=== PATIENT | female | born 1950 | race Caucasian/White ===

== ENCOUNTER 2025-08-26 07:45 | Outpatient (OUT) | payer MEDICARE, OTHER, SELFPAY ==
--- OUTSIDE RECORDS SUMMARY | 2021-03-03 07:00 | XMS_ITS | Continuity of Care Document ---
Author Organization [email or web address] [facility] Address [address] [place] [address] Phone Care Team Providers Care Pediatric Psychiatrist Name Role Phone Mike Huertas DO Unavailable Unavailabl e Allergies, Adverse Reactions, Alerts Substance Reaction Status Criticality No Known Allergies Active No Inform ation Medications Medication Instructions Dosage Effective Dates (start - stop) Status Comments Calcium 500 500 mg calcium (1,250 mg) tablet - Active ibuprofen 800 mg tablet take 1 tablet by oral route 3 times every day with food 800 MG - Active Multiple Vitamin, Womens tablet - Active Vitamin C 500 mg capsule,extended release - Active Procedures Procedure Date POSTOP FOLLOW-UP VISIT Advance Directives Directive Yes / No Effective Date File Name No Information Encounters Encounter Description Practice Location Reason(s) For Visit Diagnoses Date Provider Providers Copied on Encounter [email or web address] [facility], [address] [place] [address] [address], [place], [place], [id number] , [place] [phone] [facility] General Surgery Skin under chin (chief complaint) Elective procedure for unacceptable cosmetic appearance Feb- Aleksandar Wolfe. [address], [place], [place], [id number], [place]. tel:[phone] Referring Provider: Mike Huertas DO, [address], [place], [address]. tel:[phone] Family History Family Member Type Diagnosis Age At Onset No Information Payers Payer name Insurance type Covered republican ID Authoriza tion(s) Medicare MB [id number] [employer] [id number] Social History Type Description Quantity Date Captured Comments Alcohol Use Details Unknown Caffeine Use Details Unknown Tobacco Use Status Current non-smoker Smoking Status Never smoker Non-Smoking Tobacco Use Details : No Details Available : No Details Available [id number] SexFemale Vital Signs Date / Time: Height Weight BMI Pulse Rate Blood Pressure Temperature Respiratory Rate Body Surface Area Head Circumference Head Circ. Percentile Wt./Claudio. Percentile BMI percentile Pulse Ox Inhaled Ox 11:00 AM 63.00 in 58.967 kg (130.00 lbs) 23.0 3 kg/m eter (2) 148/78 mm[Hg] 98.30 F Chief Complaint And Reason For Visit From encounter dated '03/03/2021 11:00'. Skin under chin (chief complaint). Description: Cinda is a very pleasant 70 year old female who is seen for a cosmetic consultation regarding excess and sagging skin under the neck. Unfortunately she will likely need a true neck and facelift. These are procedures that I unfortunately do not do. Ihave referred her to Dr. Rober Harden and Dr. Betzaida Mckeon at [facility]. Reason For Referral Reason For Referral No Information History Of Present Illness Encounter Date Complaint History Of Prese nt Illness Skin under chin Cinda is a jairo y pleasant 70 year old female who is seen for a cosmetic consultation regarding excess and sagging skin under the neck. Unfortunately she will likely need a true neck and facelift. These are procedures that I unfortunately do not do. I have referred her to Dr. Rober Harden and Dr. Betzaida Mckeon at [facility]. Functional Status Date Functional Assessmen t No Information Instructions Date Instruction Additional Infor mation No Information Assessments Type Assessment Date assessment Elective procedure for unaccepta ble cosmetic appearance Patient Care Teams Name Effective Dates (start - stop) Status Members No Information
--- OUTSIDE RECORDS SUMMARY | 2025-08-26 07:50 | XMS_ITS | Clinical Summary ---
Author Organization [facility] Address [address] [place] [address] Care Team Providers Care Trackmobile Operator Name Role Phone Walter Sellers MD Primary Care Provider [phone] Allergies Active AllergyReactionsCriticalityNoted DateCommentsPenicillinsHives,OtherLow 12/01/2014 Medications MedicationSigDispense QuantityRefillsLast FilledStart DateEnd DateStatus ibuprofen 800 MG tablet Take 800 mg by mouth 2 (two) times a day as neededActive gabapentin (Neurontin) 300 MG capsule 06/09/2024ctive pantoprazole (ProtoNix) 40 MG EC tablet Take 40 mg by mouth in the morning. Take before meals. Do not crush, chew, or split.Active atorvastatin (Lipitor) 20 MG tablet Take 20 mg by mouth DailyActive alendronate (Fosamax) 70 MG tablet Take 70 mg by mouth every 7 (seven) days Take in the morning with a full glass of water, on an empty stomach, and do not take anything else by mouth or lie down for the next 30 min.Active ammonium lactate (Amlactin) 12 % cream Indications:Corns and callositiesApply topically Daily 140 g [id number](Therapy completed) Active Problems No known active problems Encounters DateTypeDepartmentCare WgrjQbnztpanogm50/02/2025Telephone [facility] [address] [place] [address] Viktor Carpenter PA [facility]/05/[facility]25 1:30 PM EDTOffice Visit [facility] [place] [facility] [address] [place] [address] Viktor Carpenter PA Acute right hip pain (Primary Dx); Sacroiliac joint pain08/05/2025amboo flowsheet [facility] [address] [place] [address] Viktor Carpenter PA 08/05/2025Travelfrom Last 3 Months Immunizations ImmunizationAdministration DatesNext DueInfluenza, High-dose Seasonal, Quadrivalent, Preservative Free08/02/2023Influenza, Seasonal, Quadrivalent, Ivkvgnyhvy29/01/2021Influenza, injectable, quadrivalent, preservative free 08/12/2018Influenza, trivalent, pamkengfin94/19/2018RSV, recombinant, protein subunit RSVpreF, adjuvant reconstitu, 120mcg/0.5mL, PF (Arexvy)08/02/2023Tdap 06/20/2015 Family History RelationNameStatusCommentsFatherDeceasedMotherDeceased Social History Tobacco UseTypesPacks/DayYears UsedDateSmoking Tobacco: Never Tobacco Cessation:Counseling Given: Not Answered Alcohol UseStandard Drinks/WeekCommentsYes1 (1 standard drink = 0.6 oz pure alcohol)1x weeklyCommentsUnknownSex and Gender InformationValueDate RecordedSex Assigned at BirthNot on fileLegal PomKscbbf50/15/2023 6:56 PM EDT Gender IdentityNot on fileSexual OrientationNot on file Last Filed Vital Signs Vital SignReadingTime TakenCommentsBlood Bjxaozwa102/7105 12:00 PM EDT Pulse--Temperature--Respiratory Rate--Oxygen Saturation--Inhaled Oxygen Concentration--Privyh32.6 kg (138 lb)08/05/2025 1:10 PM GHQBeuwxk844 cm (5' 3 ) 08/05/2025 1:10 PM EDTBody Mass Index24.451 1:10 PM EDT Plan of Treatment DateTypeDepartmentCare Team (Latest Contact Info)Fwmbydqnjis76/02/2025 1:30 PM ESTOffice Visit [facility] [address] [place] [address] Viktor Carpenter PA [address] [place] [address] Health MaintenanceDue DateLast DoneCommentsPneumococcal Vaccine: 65+ Years (1 of 1 - PCV)1999Influenza Vaccine (#1)5008/02/2023, 08/05/2021, 08/23/2018, Additional history gloezlBiejvzgzfSnprfdbtrner31/18/2023, 08/04/2022, 07/29/2020, Additional history exists Insurance Care Teams Team MemberRelationshipSpecialtyStart DateEnd Date Walter Sellers MD [facility] [facility] [place] [address] PCP - [facility]06/25/24
--- OUTSIDE RECORDS SUMMARY | 2025-08-26 07:50 | XMS_ITS | Patient Health Record ---
Author Organization [facility] Address [address] [place], [place] [id number] Care Team Providers Care Senior Telecommunications Consultant Name Role Phone Kristen Regan Unavailable [phone] Allergies Allergen (clinical drug ingredient) Drug/Non Drug Allergy documented on EMR Reaction Allergy Type Onset Date Status PenicillinUnknownDrug AllergyActive Reason For Referral Reason known arthritis, man age Diagnosis 1 Right hip pain (M25. 551) Referral Organization Main Referring Provider First Name Kristen Referring Provider Last Name Jass Referring Provider Speciality Internal M edicine Referred Provider [facility] Referred Provider Specialty Orthopedics General Notes Miko Wellington 08/17 07:57:05 AM >referral fax [place]/uJulien Emily 08/19/2025 10:52:03 AM >Per fax from office, patient was seen on 08/05/25. Office note was not attached. Referral Priority Routine Referral Appointment Date 08/05/2025 Medications Medication SIG (Take, Route, Frequency, Duration) Notes Start Date End Date Status rOPINIRole HCl 0.25 MG 1 tablet 1 to 3 h ours before bedtime Orally Once a day; Duration: 30 days 5ActivePantoprazole Sodium 40 MG1 tablet 1/2 to 1 hour before morning meal Orally Once a dayActiveAtorvastatin Calcium 20 MG1 tablet Orally Once a day ActiveIbuprofen 800 MG1 tablet with food or milk as needed Orally every 8 hrsprn ActiveAlendronate Sodium 10 MG1 tablet 30 minutes before the first food, beverage or medicine of the day with plain water Orally Once a dayevery sunday ActiveGabapentin 300 MG1 capsule Orally Once a dayActiveCalcium 600 MG1 tablet with meals Orally Twice a dayActiveTurmeric 500 MGas directed OrallyActive Social History Tobacco Use: Social History Observation Description Date Details (start date - stop date) Never Smoker NA - NA Tobacco Use/Smoking Question Answer Notes Tobacco use: nonsmoker patient enter ed data CAGE-AID Questionnaire (2018 Edition) Question Answer Notes Have you ever felt that you ought to cut down on your drinking or drug use? No patient entered data Have people annoyed you by c riticizing your drinking or drug use? No patient entered data Have you ever felt bad or gu ilty about your drinking or drug use? No patient entered data Have you ever had a drink or used drugs first thing in the morning to steady your nerves or to get rid of a hangover? No patient entered data CAGE-AID Score 0 InterpretationNegativePRAPARE Question Answer Notes Date Completed/Updated: 08/03/2025 alessandro nt entered data What is your current housing situation? I have housing patient entered data Are you worried about losing your housing? No patient entered data What is the highest level of school that you have finished? High school diploma or GED patient entered data What is your current work situation? Otherwise unemployed but not seeking work (ex. 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 Check all that apply I choose not to answer this question Has lack of transportation kept you from medical appointments, meetings, work or from getting things needed for daily living?NoHow often do you see or talk to people that you care about and feel close to? (For example: talkingto friends on the phone, visiting friends or family, going to uatsdin or club meetings)More than 5 times a weekpatient entered dataHow stressed are you? Stress is when someone feels tense, nervous, anxious, or can't sleep at nightbecause their mind is troubledA little bitpatient entered dataIn the past year have you spent more than 2 nights in a row in a half-way, [facility], [facility] center, orjuvenile correctional facility?Nopatient entered dataAre you a refugee?Nopatient entered dataWhat country are you from?[place] Statespatient entered dataDo you feel physically and emotionally safe where you currently live?Yespatient entered dataIn the past year, have you been afraid of your partner or ex-partner?Nopatient entered dataPRAPARE Score:4 Problems Problem Type SNOMED Code ICD Code Onset Dates Problem Status W/U Status Risk Notes Problem Restless legs (26076265) Restless legs (G 25.81) ActiveconfirmedProblemArthritis (0602383)Arthritis (M19.90)Activeconfirmed ProblemObese class I (finding) (327306843346535)Obesity, Class I, BMI 30-34.9 (E66.811)Activeconfirmed Vital Signs Heart Rate 68 /min 08/03/2025 Zora Lopez 08/03/2025 01:08:05 PM EDT > Temperature 97 degrees Fahrenheit 08/03/2025 Zora Lopez 08/03/2025 01:08:05 PM EDT > Respiratory Rate 18 /min 08/03/2025 Joe Lopez 08/03/2025 01:08:05 PM EDT > Blood pressure diastolic 69 mm Hg 08/03/2025 Zora Andino 08/03/2025 01:08:05 PM EDT > Oximetry 99 % 08/03/2025 Zora Lopez 08/03/2025 01:08:05 PM EDT > Height-cm 134.62 cm 08/03/2025 Zora Lopez 08/03/2025 01:08:05 PM EDT > Weight-kg 60.51 kg 08/03/2025 Zora Lopez 08/03/2025 01:08:05 PM EDT > Height 53 in 08/03/2025 Zora Lopez 08/03/2025 01:08:05 PM EDT > Blood pressure systolic 114 mm Hg 08/03/2025 Zora Cardoso 08/03/2025 01:08:05 PM EDT > Weight 133.4 lbs 08/03/2025 Zora Lopez 08/03/2025 01:08:05 PM EDT > BMI 33.39 kg/m2 08/03/2025 Zora Lopez 08/03/2025 01:08:05 PM EDT > Encounters Encounter Location Date Provider Diagnosis Main [address], [place] [id number] 08/03/2025 Kristen Regan Right hip pain M25.5 51 ; Restless legs G25.81 ; Obesity, Class I, BMI 30-34.9 E66.811 ; Dietary counseling Z71.3 and Exercise counseling Z71.82 Assessments Encounter Date Diagnosis (ICD Code) Assessment Notes Treatment Notes Treatment Clinical Notes Section Notes 08/03/2025 Right hip pain (ICD-10 - M25.551 ) Likely arthritis flare. Will refer to ortho for further evaluation and possible steroid shots.08/03/2025Restless legs (ICD-10 - G25.81)Given bilateral pain and feeling of restlessness with trial Requip. If no improvement can consider adding duloxetine. SI discussed.08/03/2025Obesity, Class I, BMI 30-34.9 (ICD-10 - E66.811)08/03/2025Dietary counseling (ICD-10 - Z71.3)08/03/2025Exercise counseling (ICD-10 - Z71.82) Plan Of Treatment Next Appt Details Provider Name:Kristen Regan, 09/02/2025 12:45:00 PM, [address] [place], [place], [id number], Insurance Providers Payer Name Payer Address Payer Phone Subscriber Number Group Number Insured Name Patient Relationship to Insured Coverage Start Date Coverage End Date Medicare NGS PPS [address] [place], [place] [id number] [phone] [id number] JoseCorina shabazzOlga - patient is the [id number] 2011SI [facility] MCR Supplement [address] [address] [place] [id number] JeffreyCorina shabazzOlga - patient is the [id number] 2023 Medical (General) History Medical History History ICD Code Osteoporosis Hip arthritisHLD
--- OUTSIDE RECORDS SUMMARY | 2025-08-26 07:50 | XMS_ITS | Clinical Summary ---
Author Organization [facility] Address [address] [place], [place] [address] Care Team Providers Care Tie Tamper Name Role Phone Marlo Serrato DO, Charles Lewis Primary Care Provi ros Viktor Gonzalez(Hist) PA Unavailable [phone]- [phone] Allergies Active AllergyReactionsCriticalityNoted PetxGjhtmgraKepuqhbousRzait21/17/2018 Medications MedicationSigDispense QuantityRefillsLast FilledStart DateEnd DateStatus multivitamin (MULTIPLE VITAMINS) tablet Take 1 tablet by mouth once daily.Active Ascorbic Acid (VITAMIN C) 100 mg tablet Take 100 mg by mouth once daily.Active ibuprofen (MOTRIN) 800 mg tablet Take 800 mg by mouth every 6 hours as needed.Active tiZANidine (ZANAFLEX) 2 mg tablet Take 1-2 tablets by mouth every 8 hours as needed. 90 tablet Active Family History Medical HistoryRelationCommentsCancerBrotherDiabetesFatherCOPDMotherRelation StatusCommentsBrotherFatherMother Social History Tobacco UseTypesPacks/DayYears UsedDateSmoking Tobacco: NeverSmokeless Tobacco: NeverArea Deprivation IndexAnswerDate RecordedNational Score (1-100), lower number is lower riskNot on file10/12/2020State Score (1-10), lower number is lower riskNot on file10/12/2020Data from: https://www.neighborhoodatlas.medicine.[facility].edu/. Last address used for calculationNot on file10/12/2020CommentsUnknownSex and Gender InformationValueDate RecordedSex Assigned at BirthNot on fileLegal SexFemale 10/10/2018 8:34 AM ESTGender IdentityNot on fileSexual OrientationNot on file Last Filed Vital Signs Vital SignReadingTime TakenCommentsBlood Agyecmra515/6310/21/2018 10:59 AM EST Pulse--Temperature--Respiratory Rate--Oxygen Saturation--Inhaled Oxygen Concentration--Qwxgge07.6 kg (135 lb 11.2 oz)10/21/2018 10:59 AM IQCQlqhtj552.6 cm (5' 4 )10/21/2018 10:59 AM ESTBody Mass Index23.29112/22/2017 10:59 AM EST Plan of Treatment Health MaintenanceDue DateLast DoneCommentsAnxiety Ktjhpeyda69/26/1967Depression Dvoxwmngm51/26/1967Hepatitis C Pmkbkhwib88/26/1967Diabetes Efmwkrgrw97/26/1994 Pneumococcal Vaccine: 50+ (1 of 1 - PCV)1999Shingrix Vaccine (1 of 2) 1999Bone Density Lntjmlvzv76/26/2014RSV Vaccine (1 - 1-dose 75+ series) 2024dvance Directive Wwrhjyjkyi37/01/2025DTaP,Tdap,Td Vaccine (2 - Td or Tdap)/Covid-19 Vaccine (1 - season)2025 Influenza Vaccine (#1)/, 08/12/2018 Insurance Care Teams Team MemberRelationshipSpecialtyStart DateEnd Date Walter Sellers Jr., DO [address] [place] [address] PCP - GeneralInternal Qhkcddnp57/6/18 Viktor Gonzalez(Hist), PA [address] [place] [address] ReferringPain Yqlrwgkbti15/6/18
--- OUTSIDE RECORDS SUMMARY | 2025-08-26 07:50 | XMS_ITS | Clinical Summary ---
Author Organization [facility] Address [address] [place] [address] Care Team Providers Care Freight Adjuster Name Role Phone Walter Sellers Primary Care Provider + [phone] Allergies Active AllergyReactionsCriticalityNoted NpovQjlscypzBsiflpwtant84/27/2015 Medications MedicationSigDispense QuantityRefillsLast FilledStart DateEnd DateStatus ibuprofen (ADVIL;MOTRIN) 800 MG tablet Take 800 mg by mouth every 6 hours as needed for Pain.Active calcium carbonate (OSCAL) 500 MG TABS tablet Take 1,200 mg by mouth daily.Active Naper-3 Fatty Acids (FISH OIL) 600 MG CAPS Take by mouth.Active Multiple Vitamins-Minerals (THERAPEUTIC MULTIVITAMIN-MINERALS) tablet Take 1 tablet by mouth daily.Active vitamin C (ASCORBIC ACID) 500 MG tablet Take 500 mg by mouth dailyActive Active Problems ProblemNoted DateDiagnosed DateOther plastic surgery for unacceptable cosmetic xzpqukrslu44/25/2015 Social History Tobacco UseTypesPacks/DayYears UsedDateSmoking Tobacco: NeverSmokeless Tobacco: NeverAlcohol UseStandard Drinks/WeekCommentsNo0 (1 standard drink = 0.6 oz pure alcohol)CommentsNoSex and Gender InformationValueDate RecordedSex Assigned at BirthNot on fileLegal BeuSozaao54/10/2013 1:34 PM ESTGender Identity Not on fileSexual OrientationNot on file Last Filed Vital Signs Vital SignReadingTime TakenCommentsBlood Tconekqm369/7409/22/2020 1:12 PM EST Ttipe664609/22/2020 1:12 PM IUNJcbhkqlgwup91.7 ??C (98 ??F)09/22/2020 1:12 PM EST Respiratory Tiid887712/24/2014 1:00 PM ESTOxygen Bayakildru15%12/24/2014 1:00 PM ESTInhaled Oxygen Concentration--Qondcj78 kg (130 lb)09/22/2020 1:12 PM EST Vmyagy830 cm (5' 3 )09/22/2020 1:12 PM ESTBody Mass Index23.03111/22/2019 1:12 PM EST Plan of Treatment Not on file Insurance Advance Directives TypeDate RecordedPatient RepresentativeExplanationACP-Power of Attorney12/29/2014 10:59 AMACP-Advance Directive12/29/2014 10:59 AM Care Teams Team MemberRelationshipSpecialtyStart DateEnd Date Walter Sellers DO [address] [place] [phone] PCP - GeneralInternal Medicine12/01/14
--- OUTSIDE RECORDS SUMMARY | 2025-08-26 07:50 | XMS_ITS | Encounter Summary ---
Author Organization [facility] Address [address] [place] [address] Care Team Providers Care Derrick Follower Name Role Phone Walter Sellers MD Primary Care Provider + [phone] Reason for Referral * Consultation (Routine) - AuthorizedSpecialtyDiagnoses / ProceduresReferred By ContactReferred To [facility] Medicine Diagnoses Sacroiliac joint pain Procedures [place] OFFICE/OUTPATIENT [facility] 60 MINUTES Viktor Carpenter PA [address] [place] [address] Phone: tel: fax: Reji Charles MD [address] [place] [address], [address] [place] [address] Phone: tel: fax: Referral IDStatusReasonStart DateExpiration DateVisits RequestedVisits [id number] Consult and Treat / Scheduling Instructions Please call pt to schedule Reason for Visit * ReasonOnset DateCommentsRef[facility] Encounter Details DateTypeDepartmentCare Team (Latest Contact Info)Eknpemuhopi89/02/2025Telephone [facility] [address] [place] [address] Viktor Carpenter PA [address] [place] [address] [facility] Social History Tobacco UseTypesPacks/DayYears UsedDateSmoking Tobacco: NeverAlcohol UseStandard Drinks/WeekCommentsYes1 (1 standard drink = 0.6 oz pure alcohol)1x weekly CommentsUnknownSex and Gender InformationValueDate RecordedSex Assigned at BirthNot on fileLegal FahJhzezh05/15/2023 6:56 PM EDTGender IdentityNot on fileSexual OrientationNot on filedocumented as of this encounter Miscellaneous Notes * Telephone Encounter - KIRSTIN Cook - 08/12/2025 8:15 AM EDT Spoke to pain management and they did receive referral and pt is scheduled. * Telephone Encounter - Melba Lamas - 08/11/2025 10:31 AM EDT [facility] pain management called about referral. They only received 1 page of referral. They would like referral resent with demographics and insurance information. Fax number is [phone] * Telephone Encounter - SIMONA Fan - 08/06/2025 4:21 PM EDT Sorry, New referral was sent to [facility],, apologies, I specified this to the patient, but maybe not to aries putting in the order. * Telephone Encounter - Razia Foster - 08/06/2025 2:47 PM EDT Cinda called and said that we sent the referral to Pain Mgt [facility] she [facility] to [facility] documented in this encounter Plan of Treatment DateTypeDepartmentCare Team (Latest Contact Info)Akcnqpawclk96/02/2025 1:30 PM ESTOffice Visit [facility] [address] [facility] [place] [address] Viktor Carpenter PA [address] [place] [address] NameTypePriorityAssociated DiagnosesOrder ScheduleAmbulatory referral to Pain MedicineOutpatient ReferralRoutine Sacroiliac joint pain Expected: 08/06/2025 (Approximate), Expires: 02/04/2026documented as of this encounter Visit Diagnoses Diagnosis Sacroiliac joint pain- Primary Disorders of sacrum documented in this encounter Care Teams Team MemberRelationshipSpecialtyStart DateEnd Date Walter Slelers MD [address] [place] [address] PCP - General06/25/24documented as of this encounter
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
--- NOTE | 2025-08-26 08:01 | PM.CN ---
Consult Note: HPI Data of Consult Patient: new to practice Consult date: 08/26/25 Requesting Physician: Suzette Moreno NP Primary Care Provider: AJ FREY DO Consult Narrative Reason for consult: right hip pain Narrative: Cinda Plummer a pleasant 75 year old female presents for evaluation of right hip pain as recommended by Viktor Carpenter, pt has a longstanding hx of low back pain resulting in scs implant around 5 years ago. Pt has had chronic low back pain >12 months worsening over the last 6 weeks. Pt reports pain was previously well controlled with scs of unknown type. no recent injury or fall. Patient has failed to benefit from daily stretching >20 minutes over the last 6 weeks. Pain today 5/10 increasing with activity to 9/10 cc:: CC: Suzette Moreno NP Review of Systems ROS Musculoskeletal Reports: back pain and joint pain PFSH PFSH Medical History (Updated 08/26/25 @ 10:14 by Juani Lafleur) Ovarian tumor ?D49.59 - Neoplasm of unspecified behavior of other genitourinary organ (ICD-10) Abdominal hernia ?K46.9 - Unspecified abdominal hernia without obstruction or gangrene (ICD-10) Surgical History (Updated 08/26/25 @ 10:14 by Juani Lafleur) History of plastic surgery ?Z98.890 - Other specified postprocedural states (ICD-10) History of cholecystectomy ?Z90.49 - Acquired absence of other specified parts of digestive tract (ICD-10) History of resection of small bowel ?Z90.49 - Acquired absence of other specified parts of digestive tract (ICD-10) Hx of breast reduction, elective ?Z98.890 - Other specified postprocedural states (ICD-10) History of hysterotomy ?Z98.891 - History of uterine scar from previous surgery (ICD-10) Meds Home Medications and Allergies Home Medications ?Medication ?Instructions ?Recorded ?Confirmed ?Type alendronate 70 mg tablet 70 mg PO QWEEK 08/26/25 08/26/25 History atorvastatin 20 mg tablet 20 mg PO DAILY 08/26/25 08/26/25 History diclofenac sodium 50 mg 50 mg PO BID 08/26/25 08/26/25 History tablet,delayed release gabapentin 300 mg capsule 300 mg PO BID 08/26/25 08/26/25 History pantoprazole 40 mg tablet,delayed 40 mg PO DAILY 08/26/25 08/26/25 History release Allergies Allergy/AdvReac Type Severity Reaction Status Date / Time No Known Drug Allergies Allergy Verified 08/26/25 08:39 Exam Constitutional Documenting provider has reviewed patient's vital signs: yes Common normals: no apparent distress, oriented x3, healthy appearing, alert and well nourished General appearance: cooperative HENMT Common normals: normocephalic, hearing grossly normal bilaterally and moist oral mucous membranes Head and scalp: normocephalic Eye Common normals: PERRL Pupil: PERRL Neck & C-Spine Common normals: full ROM General: normal visual inspection Chest Common normals: inspection of chest normal Respiratory Common normals: normal respiratory effort, no retractions and no use of accessory muscles Back & Pelvis Lumbar spine/lower back: ROM limited, pain with ROM and lumbar spinal tenderness Sacroiliac joints: SI joint(s) abnormal Other: right sij positive shaji(patricks), gaenslens, thigh thrust, compression test Neuro Common normals: oriented x3 Sensorium/orientation: alert Psych Common normals: mental status grossly normal, thought process normal, cooperative, affect normal, speech normal and activity/motor behavior normal Speech: normal speech Thought process: normal thought process Results Additional Findings Additional findings: If on a controlled substance or opioids, I have checked an [place]AR[place] report on this patient and there are no aberrancies noted in the prescribing history.??If on a controlled substance or opioid a drug screen was completed and reviewed within the last year, and if there has not been a drug screen completed we ordered one today to monitor higher risk, state monitored pain medication use. As part of providing excellent, safe, comprehensive care, the following was completed at our patient's visit: 1. A medication reconciliation and review to ensure accurate knowledge of current/active medications, including asking our patients to inform us about any cvga-gon-jyhsncl medications or herbal remedies/nutritional supplements/alternative remedies. 2. A review to specifically ensure our patients have had annual screening for screening for depression, screening for tobacco use, and screening for unhealthy alcohol use. For concerning screenings had a discussion with the patient, provided patient education, and recommended follow-up with primary care provider when appropriate. If patient noted with a risk of falling, they received education on strength, gait, and balance training to prevent future risk of falling. Portions of this note may have been carried over from the previous visit and updated as appropriate. Please note this office utilizes paper charting in addition to the electronic medical record. A list of current medications, vitals, and PMH is available there as the clinical staff outside of myself do not have access to [facility] [employer] charting during the clinic day operations. As part of providing quality comprehensive care the current medications, vitals, and PMH were reviewed in the paper chart. Assessment and Plan Assessment and Plan (1) Sacroiliitis: (2) Lumbar radiculopathy: Assessment and Plan: hx of lumbar radiculopathy requiring scs implant, finds benefit Plan The patient has had over 3 months of moderate to severe right SIJ and low back pain with functional impairment and inadequate response to conservative care including NSAIDS (unless there are contraindication such as concurrent blood thinners), multiple oral or topical pain medications, and home exercise program/physical therapy.? Patient has completed >6 weeks of guided home exercise program and/or formal physical therapy program without relief of their symptoms.? I have reviewed the imaging of the lumbosacral spine and no red flags were identified.? The Oswestry Disability Index was completed, and the patient scored a 60%.? lumbosacral xray updated and reviewed. proceed with right SIJ injection under fluoroscopy consider lumbar MRI without contrast if pain persists continue HEP as tolerated f/u 2 weeks after injection
== END 2025-08-26 07:46 | disposition home or self-care (01) ==
PROVIDERS: Visit Provider Nurse Practitioner
DX: M46.1 Sacroiliitis, not elsewhere classified (principal); M54.16 Radiculopathy, lumbar region; M85.88 Other specified disorders of bone density and structure, other site; M51.369 Other intervertebral disc degeneration, lumbar region without mention of lumbar back pain or lower extremity pain
CPT/HCPCS: 72110; 72202; G0463

== ENCOUNTER 2025-08-26 08:32 | Outpatient (OUT) | payer MEDICARE, OTHER, SELFPAY ==
--- NOTE | 2025-08-26 08:42 | XR_ITS ---
The [address] [address] Patient Name: JEANA BOYD MRN: [id number] date: 1950 Sex: F Assigned Patient [facility]: [facility] Current Patient Location: Accession/Order Number: [id number] Exam Date: 08/26/2025 08:49 Report Date: 08/26/2025 10:12 At the request of: VERONICA BOURGEOIS NP Procedure: XR sacroiliac joint JAVON CLINICAL HISTORY: Right low back pain radiating down the right leg with intermittent numbness. No injury. LUMBAR SPINE -5 views: COMPARISON: None AP, lateral, both oblique and lateral coned-down views of the lumbosacral junction were obtained. There is osteopenia that slightly limits assessment. Thoracolumbar levoscoliotic curvature is noted. There is a dorsal stimulator with battery pack toward the left and leads extending off the upper margin of the images. There is no definite acute compression fracture. Alignment is grossly maintained on the lateral views. There are is slight disc space narrowing at L3-4 and lumbosacral junction. Tiny endplate spurs and lower lumbar facet disease are seen. No pars defect is identified however assessment of the left is slightly limited by the overlapping battery pack.. The sacroiliac joints are maintained. There are no paraspinal soft tissue abnormalities. XR/XR sacroiliac joint JAVON IMPRESSION: OSTEOPENIA, SCOLIOSIS AND DEGENERATIVE CHANGES. NO DEFINITE ACUTE BONY FINDINGS. SI JOINTS - 3 views COMPARISON: None AP and bilateral oblique views were obtained. The bony structures are osteopenic. No acute fractures are visualized. The SI joints are maintained. There is no ankylosis or significant hypertrophy. No soft tissue abnormalities are identified. IMPRESSION: NO ACUTE BONY FINDINGS. Impression dictated by: Karime Hussein M.D. 08/26/2025 10:12 AM Dictation Location: [place] [address] Electronically authenticated by: [id number] Y Date: 08/26/2025 10:12
--- NOTE | 2025-08-26 08:42 | XR_ITS ---
The [address] [address] Patient Name: JEANA BOYD MRN: [id number] date: 1950 Sex: F Assigned Patient Location: [facility] Current Patient Location: Accession/Order Number: [id number] Exam Date: 08/26/2025 08:49 Report Date: 08/26/2025 10:12 At the request of: VERONICA BOURGEOIS NP Procedure: XR sacroiliac joint JAVON CLINICAL HISTORY: Right low back pain radiating down the right leg with intermittent numbness. No injury. LUMBAR SPINE -5 views: COMPARISON: None AP, lateral, both oblique and lateral coned-down views of the lumbosacral junction were obtained. There is osteopenia that slightly limits assessment. Thoracolumbar levoscoliotic curvature is noted. There is a dorsal stimulator with battery pack toward the left and leads extending off the upper margin of the images. There is no definite acute compression fracture. Alignment is grossly maintained on the lateral views. There are is slight disc space narrowing at L3-4 and lumbosacral junction. Tiny endplate spurs and lower lumbar facet disease are seen. No pars defect is identified however assessment of the left is slightly limited by the overlapping battery pack.. The sacroiliac joints are maintained. There are no paraspinal soft tissue abnormalities. XR/XR lumbar spine min 4V IMPRESSION: OSTEOPENIA, SCOLIOSIS AND DEGENERATIVE CHANGES. NO DEFINITE ACUTE BONY FINDINGS. SI JOINTS - 3 views COMPARISON: None AP and bilateral oblique views were obtained. The bony structures are osteopenic. No acute fractures are visualized. The SI joints are maintained. There is no ankylosis or significant hypertrophy. No soft tissue abnormalities are identified. IMPRESSION: NO ACUTE BONY FINDINGS. Impression dictated by: Karime Hussein M.D. 08/26/2025 10:12 AM Dictation Location: [place] [address] Electronically authenticated by: [id number] Y Date: 08/26/2025 10:12
--- OUTSIDE RECORDS SUMMARY | 2025-08-26 08:42 | XMS_ITS | Clinical Summary ---
Author Organization [facility] Address [address], [address] [place] [address] Care Team Providers Care Hot Stick Worker Name Role Phone Walter Sellers Primary Care Provider + [phone] Allergies Active AllergyReactionsCriticalityNoted OkmgPsaovcnmZeyglgbmxab74/27/2015 Medications MedicationSigDispense QuantityRefillsLast FilledStart DateEnd DateStatus ibuprofen (ADVIL;MOTRIN) 800 MG tablet Take 800 mg by mouth every 6 hours as needed for Pain.Active calcium carbonate (OSCAL) 500 MG TABS tablet Take 1,200 mg by mouth daily.Active Montgomery-3 Fatty Acids (FISH OIL) 600 MG CAPS Take by mouth.Active Multiple Vitamins-Minerals (THERAPEUTIC MULTIVITAMIN-MINERALS) tablet Take 1 tablet by mouth daily.Active vitamin C (ASCORBIC ACID) 500 MG tablet Take 500 mg by mouth dailyActive Active Problems ProblemNoted DateDiagnosed DateOther plastic surgery for unacceptable cosmetic rzckebqbdp80/25/2015 Social History Tobacco UseTypesPacks/DayYears UsedDateSmoking Tobacco: NeverSmokeless Tobacco: NeverAlcohol UseStandard Drinks/WeekCommentsNo0 (1 standard drink = 0.6 oz pure alcohol)CommentsNoSex and Gender InformationValueDate RecordedSex Assigned at BirthNot on fileLegal EokRsgofn72/10/2013 1:34 PM ESTGender Identity Not on fileSexual OrientationNot on file Last Filed Vital Signs Vital SignReadingTime TakenCommentsBlood Lzqzwkrh818/7409/22/2020 1:12 PM EST Idjqk782809/22/2020 1:12 PM FHLWigyrzrarly94.7 ??C (98 ??F)09/22/2020 1:12 PM EST Respiratory Xhic019812/24/2014 1:00 PM ESTOxygen Hvsjievifi74%12/24/2014 1:00 PM ESTInhaled Oxygen Concentration--Nazbyn32 kg (130 lb)09/22/2020 1:12 PM EST Rwttpu562 cm (5' 3 )09/22/2020 1:12 PM ESTBody Mass Index23.03111/22/2019 1:12 PM EST Plan of Treatment Not on file Insurance Advance Directives TypeDate RecordedPatient RepresentativeExplanationACP-Power of Attorney12/29/2014 10:59 AMACP-Advance Directive12/29/2014 10:59 AM Care Teams Team MemberRelationshipSpecialtyStart DateEnd Date Walter Sellers DO [address] [place] [id number] PCP - GeneralInternal Medicine12/01/14
--- OUTSIDE RECORDS SUMMARY | 2025-08-26 08:42 | XMS_ITS | Clinical Summary ---
Author Organization [facility] Address [address] [place], [place] [id number] Care Team Providers Care Radio Officer Name Role Phone Marlo Serrato DO, Charles Lewis Primary Care Provi ros Viktor Gonzalez(Hist) PA Unavailable +- [phone] Allergies Active AllergyReactionsCriticalityNoted ZpfqKtmolunkUsvwbuimjrRnikq10/17/2018 Medications MedicationSigDispense QuantityRefillsLast FilledStart DateEnd DateStatus multivitamin [...] number is lower riskNot on file10/12/2020Data from: https://www.neighborhoodatlas.medicine.[facility].edu/. Last address used for calculationNot on file10/12/2020CommentsUnknownSex and Gender InformationValueDate RecordedSex Assigned at BirthNot on fileLegal SexFemale 10/10/2018 8:34 AM ESTGender IdentityNot on fileSexual OrientationNot on file Last Filed Vital Signs Vital SignReadingTime TakenCommentsBlood Rpedfkey659/6310/21/2018 10:59 AM EST Pulse--Temperature--Respiratory Rate--Oxygen Saturation--Inhaled Oxygen Concentration--Yrntmk63.6 kg (135 lb 11.2 oz)10/21/2018 10:59 AM ESTNzmnsn397.6 cm (5' 4 )10/21/2018 10:59 AM ESTBody Mass Index23.29112/22/2017 10:59 AM EST Plan of Treatment Health MaintenanceDue DateLast DoneCommentsAnxiety Qkfpbmlfp21/26/1967Depression Beqltthhw89/26/1967Hepatitis C Bmbfwlhmu78/26/1967Diabetes Jwcaixybm69/26/1994 Pneumococcal Vaccine: 50+ (1 of 1 - PCV)1999Shingrix Vaccine (1 of 2) 1999Bone Density Oteynazqg02/26/2014RSV Vaccine (1 - 1-dose 75+ series) 2024dvance Directive Jasbetvnhn90/01/2025DTaP,Tdap,Td Vaccine (2 - Td or Tdap)/Covid-19 Vaccine (1 - season)2025 Influenza Vaccine (#1)/, 08/12/2018 Insurance Care Teams Team MemberRelationshipSpecialtyStart DateEnd Date Walter Sellers Jr., DO [address] [place] [address] PCP - GeneralInternal Fjsxezjl47/6/18 Viktor Gonzalez(Hist), PA [address] [place] [address] ReferringPain Jmcgqcmlkx39/6/18
== END 2025-08-26 08:33 | disposition home or self-care (01) ==
PROVIDERS: PCP Internal Medicine; Visit Provider Nurse Practitioner
DX: M46.1 Sacroiliitis, not elsewhere classified (principal); M54.16 Radiculopathy, lumbar region; M85.88 Other specified disorders of bone density and structure, other site; M51.369 Other intervertebral disc degeneration, lumbar region without mention of lumbar back pain or lower extremity pain
CPT/HCPCS: 72110; 72202

== ENCOUNTER 2025-08-31 09:48 | Day surgery (SDC) | payer MEDICARE, OTHER, SELFPAY ==
--- OUTSIDE RECORDS SUMMARY | 2025-08-31 09:51 | XMS_ITS | Clinical Summary ---
Author Organization [employer] Address [id number] [address] [place] [address] Care Team Providers Care Computer Networking Instructor Adjunct Name Role Phone AmayaTanya álvarezjose MORAN-STARTER MECHANIC Primary Care Provider Allergies Active AllergyReactionsCriticalityNoted DateCommentsPenicillinsHivesLow [...] as needed for pain. 270 tablet 5Active Active Problems ProblemNoted DateDiagnosed DateRight upper quadrant abdominal pain01/28/2025 Assessment & Plan (01/28/2025 2:16 PM EDT): With patient's history of prolonged NSAID use, concern for peptic ulcer disease. Will start on pantoprazole 40 mg 1 tablet twice daily for 3 weeks to see if that will help with abdominal discomfort.Patient unsure if has had gallbladder removed or [...] and urine culture in Fracture arms with rib/sternum-pljivi5309/19/2024SBO (small bowel obstruction) 03/20/2023Lumbosacral spondylosis without mfnglxuzlu41/10/2018 Overview (02/12/2018): Added automatically from request for surgery [id number] Disc displacement, qiuduq6006/21/2017Disorder of jjpukw4205/28/2017 Encounters DateTypeDepartmentCare TahnIwebyairgne62/25/2025Refill [facility] [address] [place] [address] [place] [address] Tito Orellana, Lumbosacral spondylosis without sesrxthkur33/28/2025[facility] [address] [place] [address] [place] [address] Sandy Varghese CNA Age related osteoporosis, unspecified pathological fracture presencefrom Last 3 Months Immunizations ImmunizationAdministration DatesNext DueInfluenza Vaccine, Quadrivalent, Xmbbxnqxkk13/01/2021Influenza, High-dose, Rvdsuiyawyqj27/28/2023Influenza, Injectable, quadrivalent (PF)08/12/2018Influenza, Trivalent, Adjuvanted 08/23/2018RSV, recombinant, [...] more drinks on one occasion?Never 4PHQ-2AnswerDate RecordedTotal Iifrq655PRAPARE - Transportation AnswerDate RecordedIn the past 12 [...] as a part of a household?No 4ChildcareAnswerDate RadgcolfUujygvmjhAeedqmv62/03/2019EmploymentAnswer Date MeblcmubMetlagbuorEprewhi20/03/2019Hunger ScreeningAnswerDate Recorded Within the past 12 months we worried whether our food would run out before we got money to buy more.Never True04/22/2025Within the past 12 months the food we bought just didn't last and we didn't have money to get more.Never True 04/22/2025Purpose - LifeAnswerDate RecordedPurpose and direction in lifeUnknown 1CommentsNoSex and Gender InformationValueDate RecordedSex Assigned at BirthNot on fileLegal FvbJgiqyd14/06/2015 11:30 AM EDTGender IdentityNot on fileSexual OrientationNot on file Last Filed Vital Signs Vital SignReadingTime TakenCommentsBlood Lwwxitgp819/78004/22/2025 12:50 PM EDT Nktkj757604/22/2025 12:50 PM SYZNbtwnyxtuyj32.3 ??C (97.3 ??F)04/22/2025 12:50 PM EDTRespiratory Pufm5096 2:07 PM ESTOxygen Pajgurokfq48%04/22/2025 12:50 PM EDTInhaled Oxygen Concentration--Ykvidv30.9 kg (136 lb 6.4 oz)04/22/2025 12:50 PM TINEmbppp978 cm (5' 2.99 )04/22/2025 12:50 PM EDTBody Mass Index24.17 04/22/2025 12:50 PM EDT Plan of Treatment DateTypeDepartmentCare Team (Latest Contact Info)Gzowbaxnqjw45/11/2026 1:20 PM EDTOffice Visit [facility] [address] [place] [address] Promise Amaya, CONCRETE POINTER-STARTER MECHANIC [address] [place], [place] [address] Health MaintenanceDue DateLast DoneCommentsZoster (Shingles) Vaccine (1 of 2) 1999DTaP,Tdap and Td Vaccines (2 - Td or Tdap)/COVID-19 Vaccine ( season)/, 08/02/2023, 07/13/2022, Additional history existsInfluenza Rjkmhle67/, 08/05/2021, 08/23/2018, Additional history existsMedicare Annual Wellness Visit01/12/2026 01/12/2025Fall Risk Tkskbpnsd63/Depression Aulxslpwa56/18/2026 04/22/2025Tobacco Fdmmelosl10/ Goals GoalPatient Goal TypeAssociated ProblemsRecent ProgressPatient-Stated?Author Safe transition to home with [facility] and family support Juani Deng RN Note: Evaluation of progress towards goal: Safe transition to home with [facility] and family support. Medical Devices ImplantedTypeAreaManufacturerDevice IdentifierShelf Expiration DateModel / Serial / LotLens Iol Ultrasert 23.0d - [id number] - [id number] Implanted:Qty: 1 [facility]12[facility] [employer]/[id number] 23.0 / [id number] / NALens Iol Ultrasert 21.5d - [id number] - [id number] Implanted:Qty: 1 on 12/05/2022 [facility] [id number] 21.5 / [id number] / Insurance on file Advance Directives * Full Code (Latest Code Status on File) Date ActivatedDate ZhygxqnwwtjZzuqylng04/15/2024 6:48 PM09/21/2024 4:41 PM * Full Code Date ActivatedDate InactivatedComments03/20/2023 7:38 AM03/23/2023 4:31 PM Care Teams Team MemberRelationshipSpecialtyStart DateEnd Date Promise Amaya APRN-AVNI [address] [place] [phone] PCP - GeneralNurse Practitioner11/12/24
--- OUTSIDE RECORDS SUMMARY | 2025-08-31 09:51 | XMS_ITS | Clinical Summary ---
Author Organization [facility] Address [address] [place], [place] [address] Care Team Providers Care Horticultural Worker Name Role Phone Marlo Serrato DO, Charles Lewis Primary Care Provi ros Viktor Gonzalez(Hist) PA Unavailable +- [phone] Allergies Active AllergyReactionsCriticalityNoted YlpoRsajfpnuSabgiwwofcXwfux10/17/2018 Medications MedicationSigDispense QuantityRefillsLast FilledStart DateEnd DateStatus multivitamin [...] number is lower riskNot on file10/12/2020Data from: https://www.neighborhoodatlas.medicine.[facility].edu/. Last address used for calculationNot on file10/12/2020CommentsUnknownSex and Gender InformationValueDate RecordedSex Assigned at BirthNot on fileLegal SexFemale 10/10/2018 8:34 AM ESTGender IdentityNot on fileSexual OrientationNot on file Last Filed Vital Signs Vital SignReadingTime TakenCommentsBlood Cmwlhjlx803/6310/21/2018 10:59 AM EST Pulse--Temperature--Respiratory Rate--Oxygen Saturation--Inhaled Oxygen Concentration--Glcuyg94.6 kg (135 lb 11.2 oz)10/21/2018 10:59 AM INJKziiac709.6 cm (5' 4 )10/21/2018 10:59 AM ESTBody Mass Index23.29112/22/2017 10:59 AM EST Plan of Treatment Health MaintenanceDue DateLast DoneCommentsAnxiety Cwzwznfyl30/26/1967Depression Ewqfnlsps53/26/1967Hepatitis C Fegenbskx31/26/1967Diabetes Udumtfhlx21/26/1994 Pneumococcal Vaccine: 50+ (1 of 1 - PCV)1999Shingrix Vaccine (1 of 2) 1999Bone Density Fifgqonsx35/26/2014RSV Vaccine (1 - 1-dose 75+ series) 2024dvance Directive Gltgwrkxgn41/01/2025DTaP,Tdap,Td Vaccine (2 - Td or Tdap)/Covid-19 Vaccine (1 - season)2025 Influenza Vaccine (#1)/, 08/12/2018 Insurance Care Teams Team MemberRelationshipSpecialtyStart DateEnd Date Walter Sellers Jr., DO [address] [place] [address] PCP - GeneralInternal Fmebzojz05/6/18 Viktor Gonzalez(Hist), PA [address] [place] [address] ReferringPain Extcupmkhj50/6/18
--- OUTSIDE RECORDS SUMMARY | 2025-08-31 09:51 | XMS_ITS | Clinical Summary ---
Author Organization [facility] Address [address], [address] [place] [address] Care Team Providers Care Rigging Slinger Name Role Phone Walter Sellers Primary Care Provider + [phone] Allergies Active AllergyReactionsCriticalityNoted AvfpUohawkcjJxbmcqslbkb25/27/2015 Medications MedicationSigDispense QuantityRefillsLast FilledStart DateEnd DateStatus ibuprofen (ADVIL;MOTRIN) 800 MG tablet Take 800 mg by mouth every 6 hours as needed for Pain.Active calcium carbonate (OSCAL) 500 MG TABS tablet Take 1,200 mg by mouth daily.Active [place]-3 Fatty Acids (FISH OIL) 600 MG CAPS Take by mouth.Active Multiple Vitamins-Minerals (THERAPEUTIC MULTIVITAMIN-MINERALS) tablet Take 1 tablet by mouth daily.Active vitamin C (ASCORBIC ACID) 500 MG tablet Take 500 mg by mouth dailyActive Active Problems ProblemNoted DateDiagnosed DateOther plastic surgery for unacceptable cosmetic rbyndbtlop87/25/2015 Social History Tobacco UseTypesPacks/DayYears UsedDateSmoking Tobacco: NeverSmokeless Tobacco: NeverAlcohol UseStandard Drinks/WeekCommentsNo0 (1 standard drink = 0.6 oz pure alcohol)CommentsNoSex and Gender InformationValueDate RecordedSex Assigned at BirthNot on fileLegal IlwFsqzso32/10/2013 1:34 PM ESTGender Identity Not on fileSexual OrientationNot on file Last Filed Vital Signs Vital SignReadingTime TakenCommentsBlood Abygzobc301/7409/22/2020 1:12 PM EST Zygei660409/22/2020 1:12 PM KLQLdlmnztdqej34.7 ??C (98 ??F)09/22/2020 1:12 PM EST Respiratory Zdgx187012/24/2014 1:00 PM ESTOxygen Bumgzgraej28%12/24/2014 1:00 PM ESTInhaled Oxygen Concentration--Etwnni20 kg (130 lb)09/22/2020 1:12 PM EST Goebxv119 cm (5' 3 )09/22/2020 1:12 PM ESTBody Mass Index23.03111/22/2019 1:12 PM EST Plan of Treatment Not on file Insurance Advance Directives TypeDate RecordedPatient RepresentativeExplanationACP-Power of Attorney12/29/2014 10:59 AMACP-Advance Directive12/29/2014 10:59 AM Care Teams Team MemberRelationshipSpecialtyStart DateEnd Date Walter Sellers DO [address] [place] [phone] PCP - GeneralInternal Medicine12/01/14
--- OUTSIDE RECORDS SUMMARY | 2025-08-31 09:52 | XMS_ITS | Clinical Summary ---
Author Organization [facility] Address [address] [place] [address] Care Team Providers Care Civil Structural Engineer Name Role Phone Walter Sellers MD Primary Care Provider [phone] Allergies Active AllergyReactionsCriticalityNoted DateCommentsPenicillinsHives,OtherLow 12/01/2014 Medications MedicationSigDispense [...] Indications:Corns and callositiesApply topically Daily 140 g [id number](Therapy completed) Active Problems No known active problems Encounters DateTypeDepartmentCare LsorXabvyivmter20/02/2025[facility]phone [facility] [address] [place] [address] Viktor Carpenter PA [facility]08/05/2025 1:30 PM EDTOffice Visit [facility] [address] [place] [phone] Viktor Carpenter PA Acute right hip pain (Primary Dx); Sacroiliac joint pain08/05/2025amboo flowsheet [facility] [address] [place] [phone] Viktor Carpenter PA 08/05/2025Travelfrom Last 3 Months Immunizations ImmunizationAdministration DatesNext DueInfluenza, High-dose Seasonal, Quadrivalent, Preservative Free08/02/2023Influenza, Seasonal, Quadrivalent, Vvawdhuqys72/01/2021Influenza, injectable, quadrivalent, preservative free 08/12/2018Influenza, trivalent, sbyqtvbdra66/19/2018RSV, recombinant, protein subunit RSVpreF, adjuvant reconstitu, 120mcg/0.5mL, PF (Arexvy)08/02/2023Tdap 06/20/2015 Family History RelationNameStatusCommentsFatherDeceasedMotherDeceased Social History Tobacco UseTypesPacks/DayYears UsedDateSmoking Tobacco: Never Tobacco Cessation:Counseling Given: Not Answered Alcohol UseStandard Drinks/WeekCommentsYes1 (1 standard drink = 0.6 oz pure alcohol)1x weeklyCommentsUnknownSex and Gender InformationValueDate RecordedSex Assigned at BirthNot on fileLegal DswGrszpe10/15/2023 6:56 PM EDT Gender IdentityNot on fileSexual OrientationNot on file Last Filed Vital Signs Vital SignReadingTime TakenCommentsBlood Akkghoac350/7105 12:00 PM EDT Pulse--Temperature--Respiratory Rate--Oxygen Saturation--Inhaled Oxygen Concentration--Bfcgns09.6 kg (138 lb)08/05/2025 1:10 PM DKFHgeuvf081 cm (5' 3 ) 08/05/2025 1:10 PM EDTBody Mass Index24.451 1:10 PM EDT Plan of Treatment DateTypeDepartmentCare Team (Latest Contact Info)Rzdsqetmkju36/02/2025 1:30 PM ESTOffice Visit [facility] [address] [place] [address] Viktor Carpenter PA [address] [place] [address] Health MaintenanceDue DateLast DoneCommentsPneumococcal Vaccine: 65+ Years (1 of 1 - PCV)1999Influenza Vaccine (#1)5008/02/2023, 08/05/2021, 08/23/2018, Additional history jwotliNlqnhxryqDubuupynsnis56/18/2023, 08/04/2022, 07/29/2020, Additional history exists Insurance Care Teams Team MemberRelationshipSpecialtyStart DateEnd Date Walter Sellers MD [facility] [facility] [place] [address] PCP - [facility]06/25/24
[2025-08-31 10:39] VITALS: BP 119/75; PULSE 78; TEMP 37.1; O2SAT 97
[2025-08-31 11:23] VITALS: BP 148/63; PULSE 74; O2SAT 98
[2025-08-31 11:25] VITALS: BP 144/65; PULSE 73; O2SAT 96
--- NOTE | 2025-08-31 11:26 | W.PM.PROCNOT ---
Date of procedure: 08/31/25 Pre-op diagnosis: Pain due to right sacroiliitis Post-op diagnosis: same as pre-op Procedure: Procedure: Right sacroiliac joint injection Medications: Bupivacaine 0.25% 3cc, depomedrol 40mg After informed consent was obtained, the patient was brought to the medical procedure unit and placed in the prone position, when a timeout was completed verifying correct patient, procedure, site, positioning, implant, and/or special equipment.? The skin overlying the area was prepped and draped in standard sterile fashion using alcohol.? A 25-gauge needle was inserted towards the right sacroiliac joint under direct fluoroscopic imaging.? Needle tip was advanced until the joint was encountered.? We instilled a total of 2 mL of solution.? Postoperatively needles were removed.? The patient tolerated the procedure well without complication.? The patient reported reduction in pain symptoms postoperatively. Anesthesia: Local Surgeon: Darshana Malagon Pathology: none sent Condition: stable Disposition: no change
[2025-08-31] MEDS: BUPIVACAINE HCL 0.25% PF 25 MG/10 ML VIAL 2 ML INJ (11:27)
[2025-08-31] MEDS: IOHEXOL 240 MG/ML - 10 ML VIAL 24 MG INJ (11:27)
[2025-08-31] MEDS: LIDOCAINE HCL 2% 400 MG/20 ML MDV INJ (11:27)
[2025-08-31] MEDS: METHYLPREDNISOLONE ACETATE 40 MG/ML VIAL INJ (11:27)
== END 2025-08-31 11:30 | disposition home or self-care (01) ==
PROVIDERS: Visit Provider Anesthesiology
DX: M46.1 Sacroiliitis, not elsewhere classified (principal)
CPT/HCPCS: 27096; J0665; J1010; Q9966

== ENCOUNTER 2025-09-10 13:33 | Outpatient (OUT) | payer MEDICARE, OTHER, SELFPAY ==
--- OUTSIDE RECORDS SUMMARY | 2025-09-02 07:45 | XMS_ITS ---
Author Organization [facility] Address [address] [place] [id number] Care Team Providers Care Semiconductor Manufacturing Technician Name Role Phone Kristen Regan Unavailable [phone] REASON FOR VISIT restless leg Encounters Encounter Location Date Provider Diagnosis Main [address] [place] [id number] 09/02/2025 Kristen Regan Plan Of Treatment No Information Progress Notes * Cinda BOYDDOB: [birth year] (75 yo F)Acc No.[id number]:09/02/2025 Medical Note Patient: Cinda ISLAS :?Kristen Regan, MDDOB:1950???Age:75 Y???Sex: FemaleDate:09/02/2025Phone:[phone]:[facility] [place], [id number] Subjective: * Chief Complaints: * 1 . Restless leg. * Medical History: Objective: * Vitals: Assessment: Plan: * Treatment: * Billing Information: * Visit Code: * Procedure Codes: * Electronic signature of Kristen Regan MD on 09/10/2025 at 01:36 PM ESTSign off status: Pending * Provider: Vasyl Regan MD Date: 1 Generated for Printing/Faxing/eTransmitting on:?09/10/2025 01:36 PM EST
--- OUTSIDE RECORDS SUMMARY | 2025-09-10 13:36 | XMS_ITS | Clinical Summary ---
Author Organization [facility] Address [address] [place], [place] [address] Care Team Providers Care Data Mining Analyst Name Role Phone Marlo Serrato DO, Charles Lewis Primary Care Provi ros Viktor Gonzalez(Hist) PA Unavailable +- [phone] Allergies Active AllergyReactionsCriticalityNoted BeqcDxyqpowwVelusmhdvgPwjpq78/17/2018 Medications MedicationSigDispense QuantityRefillsLast FilledStart DateEnd DateStatus multivitamin [...] number is lower riskNot on file10/12/2020Data from: https://www.neighborhoodatlas.medicine.[facility].edu/. Last address used for calculationNot on file10/12/2020CommentsUnknownSex and Gender InformationValueDate RecordedSex Assigned at BirthNot on fileLegal SexFemale 10/10/2018 8:34 AM ESTGender IdentityNot on fileSexual OrientationNot on file Last Filed Vital Signs Vital SignReadingTime TakenCommentsBlood Oftnyorp202/6310/21/2018 10:59 AM EST Pulse--Temperature--Respiratory Rate--Oxygen Saturation--Inhaled Oxygen Concentration--Tbynys49.6 kg (135 lb 11.2 oz)10/21/2018 10:59 AM GBPLvqyif325.6 cm (5' 4 )10/21/2018 10:59 AM ESTBody Mass Index23.29112/22/2017 10:59 AM EST Plan of Treatment Health MaintenanceDue DateLast DoneCommentsAnxiety Huaobndqv38/26/1967Depression Dngvfxlki04/26/1967Hepatitis C Yeichkyfa24/26/1967Diabetes Qzzaqniiv82/26/1994 Pneumococcal Vaccine: 50+ (1 of 1 - PCV)1999Shingrix Vaccine (1 of 2) 1999Bone Density Chqrmpynw72/26/2014RSV Vaccine (1 - 1-dose 75+ series) 2024dvance Directive Yidcelbbsu36/01/2025DTaP,Tdap,Td Vaccine (2 - Td or Tdap)/Covid-19 Vaccine (1 - season)2025 Influenza Vaccine (#1)/, 08/12/2018 Insurance Care Teams Team MemberRelationshipSpecialtyStart DateEnd Date Walter Sellers Jr., DO [address] [place] [address] PCP - GeneralInternal Vbprwntv57/6/18 Viktor Gonzalez(Hist), PA [address] [place] [address] ReferringPain Nicvsaeegi89/6/18
--- OUTSIDE RECORDS SUMMARY | 2025-09-10 13:37 | XMS_ITS | Clinical Summary ---
Author Organization [facility] Address [address], [address] [place] [address] Care Team Providers Care Hydraulic Blocker Name Role Phone Walter Sellers Primary Care Provider + [phone] Allergies Active AllergyReactionsCriticalityNoted CwzqRwfkmjtuCznvsbeuhyr83/27/2015 Medications MedicationSigDispense QuantityRefillsLast FilledStart DateEnd DateStatus ibuprofen (ADVIL;MOTRIN) 800 MG tablet Take 800 mg by mouth every 6 hours as needed for Pain.Active calcium carbonate (OSCAL) 500 MG TABS tablet Take 1,200 mg by mouth daily.Active [place]-3 Fatty Acids (FISH OIL) 600 MG CAPS Take by mouth.Active Multiple Vitamins-Minerals (THERAPEUTIC MULTIVITAMIN-MINERALS) tablet Take 1 tablet by mouth daily.Active vitamin C (ASCORBIC ACID) 500 MG tablet Take 500 mg by mouth dailyActive Active Problems ProblemNoted DateDiagnosed DateOther plastic surgery for unacceptable cosmetic eueihvafil42/25/2015 Social History Tobacco UseTypesPacks/DayYears UsedDateSmoking Tobacco: NeverSmokeless Tobacco: NeverAlcohol UseStandard Drinks/WeekCommentsNo0 (1 standard drink = 0.6 oz pure alcohol)CommentsNoSex and Gender InformationValueDate RecordedSex Assigned at BirthNot on fileLegal IsfTvyudv01/10/2013 1:34 PM ESTGender Identity Not on fileSexual OrientationNot on file Last Filed Vital Signs Vital SignReadingTime TakenCommentsBlood Tshrdaeu749/7409/22/2020 1:12 PM EST Twusn089609/22/2020 1:12 PM ZDITznviadrkpv36.7 ??C (98 ??F)09/22/2020 1:12 PM EST Respiratory Hrdo878712/24/2014 1:00 PM ESTOxygen Addepacrjh54%12/24/2014 1:00 PM ESTInhaled Oxygen Concentration--Qstzfw24 kg (130 lb)09/22/2020 1:12 PM EST Eyhlse652 cm (5' 3 )09/22/2020 1:12 PM ESTBody Mass Index23.03111/22/2019 1:12 PM EST Plan of Treatment Not on file Insurance Advance Directives TypeDate RecordedPatient RepresentativeExplanationACP-Power of Attorney12/29/2014 10:59 AMACP-Advance Directive12/29/2014 10:59 AM Care Teams Team MemberRelationshipSpecialtyStart DateEnd Date Walter Sellers DO [address] [place] [phone] PCP - GeneralInternal Medicine12/01/14
--- OUTSIDE RECORDS SUMMARY | 2025-09-10 13:37 | XMS_ITS | Patient Health Record ---
Author Organization [facility] Address [address] [address] [place], [place] [id number] Care Team Providers Care Lead Android Developer Name Role Phone Kristen Regan Unavailable [phone] Allergies Allergen (clinical drug ingredient) Drug/Non Drug Allergy documented on EMR Reaction Allergy Type Onset Date Status PenicillinUnknownDrug AllergyActive Results Component Value Reference Range Notes XR lumbar spine min 4V Reviewed date:08/26/2025 10:36:41 AM Interpretation: Performing Lab: Notes/Report: Source Facility: [place] [address] XRay Report Signed Patient: Jeana Boyd MR#: [id number] : 1950 Acct:[id number] Age/Sex: 75 / F ADM Date: 08/26/25 Loc: MEGHNA Attending Dr: Veronica Bourgeois NP Ordering Physician: Veronica Bourgeois NP Date of Service: 08/26/25 Procedure(s): XR lumbar spine min 4V Accession Number(s): [id number] cc: Kristen Regan M.D.; Veronica Bourgeois NP [place] [address] Patient Name: JEANA BOYD MRN: [id number] date: 1950 Sex: F Assigned Patient Location: [facility] Current Patient Location: PM Accession/Order Number: [id number] Exam Date: 08/26/2025 08:49 Report Date: 08/26/2025 10:12 At the request of: VERONICA BOURGEOIS NP Procedure: XR sacroiliac joint JAVON CLINICAL HISTORY: Right low back pain radiating down the right leg with intermittent numbness. No injury. LUMBAR SPINE -5 views: COMPARISON: None AP, lateral, both oblique and lateral coned-down views of the lumbosacral junction were obtained. There is osteopenia that slightly limits assessment. Thoracolumbar levoscoliotic curvature is noted. There is a dorsal stimulator with battery pack toward the left and leads extending off the upper margin of the images. There is no definite acute compression fracture. Alignment is grossly maintained on the lateral views. There are is slight disc space narrowing at L3-4 and lumbosacral junction. Tiny endplate spurs and lower lumbar facet disease are seen. No pars defect is identified however assessment of the left is slightly limited by the overlapping battery pack.. The sacroiliac joints are maintained. There are no paraspinal soft tissue abnormalities. XR/XR lumbar spine min 4V IMPRESSION: OSTEOPENIA, SCOLIOSIS AND DEGENERATIVE CHANGES. NO DEFINITE ACUTE BONY FINDINGS. SI JOINTS - 3 views COMPARISON: None AP and bilateral oblique views were obtained. The bony structures are osteopenic. No acute fractures are visualized. The SI joints are maintained. There is no ankylosis or significant hypertrophy. No soft tissue abnormalities are identified. IMPRESSION: NO ACUTE BONY FINDINGS. Impression dictated by: Karime Hussein M.D. 08/26/2025 10:12 AM Dictation Location: [place] [address] Electronically authenticated by: [id number] Y Date: 08/26/2025 10:12 Dictated By: Karime Hussein M.D. Signed By: 08/26/25 1015 DD/ 1012 TD/TT: Front End Manager: XR sacroiliac joint JAVON Reviewed date:08/26/2025 10:36:21 AM Interpretation: Performing Lab: Notes/Report: Source Facility: [facility]-[address] [place] [address] [place] [address] XRay Report Signed Patient: Jeana Boyd MR#: [id number] : 1950 Acct:[id number] Age/Sex: 75 / F ADM Date: 08/26/25 Loc: RAD Attending Dr: Veronica Bourgeois NP Ordering Physician: Veronica Bourgeois NP Date of Service: 08/26/25 Procedure(s): XR sacroiliac joint JAVON Accession Number(s): [id number] cc: Kristen Regan M.D.; Veronica Bourgeois NP [address] [address] Patient Name: JEANA BOYD MRN: [id number] date: 1950 Sex: F Assigned Patient Location: [facility] Current Patient Location: Accession/Order Number: [id number] Exam Date: 08/26/2025 08:49 Report Date: 08/26/2025 10:12 At the request of: VERONICA BOURGEOIS NP Procedure: XR sacroiliac joint JVAON CLINICAL HISTORY: Right low back pain radiating down the right leg with intermittent numbness. No injury. LUMBAR SPINE -5 views: COMPARISON: None AP, lateral, both oblique and lateral coned-down views of the lumbosacral junction were obtained. There is osteopenia that slightly limits assessment. Thoracolumbar levoscoliotic curvature is noted. There is a dorsal stimulator with battery pack toward the left and leads extending off the upper margin of the images. There is no definite acute compression fracture. Alignment is grossly maintained on the lateral views. There are is slight disc space narrowing at L3-4 and lumbosacral junction. Tiny endplate spurs and lower lumbar facet disease are seen. No pars defect is identified however assessment of the left is slightly limited by the overlapping battery pack.. The sacroiliac joints are maintained. There are no paraspinal soft tissue abnormalities. XR/XR sacroiliac joint JAVON IMPRESSION: OSTEOPENIA, SCOLIOSIS AND DEGENERATIVE CHANGES. NO DEFINITE ACUTE BONY FINDINGS. SI JOINTS - 3 views COMPARISON: None AP and bilateral oblique views were obtained. The bony structures are osteopenic. No acute fractures are visualized. The SI joints are maintained. There is no ankylosis or significant hypertrophy. No soft tissue abnormalities are identified. IMPRESSION: NO ACUTE BONY FINDINGS. Impression dictated by: Karime Hussein M.D. 08/26/2025 10:12 AM Dictation Location: [place] [address] Electronically authenticated by: [id number] Y Date: 08/26/2025 10:12 Dictated By: Karime Hussein M.D. Signed By: 08/26/25 1015 DD/ 1012 TD/TT: Front End Manager: Reason For Referral Reason known arthritis, man age Diagnosis 1 Right hip pain (M25. 551) Referral Organization Main Referring Provider First Name Kristen Referring Provider Last Name Jass Referring Provider Speciality Internal M edicine Referred Provider [facility] Referred Provider Specialty Orthopedics General Notes Miko Wellington 08/17 07:57:05 AM >referral fax sf/u, Meghann Victoria 08/19/2025 10:52:03 AM >Per fax from office, patient was seen on 08/05/25. Office note was not attached., Miko Wellington 08/26/2025 10:48:03 AM >requested report Referral Priority Routine Referral Appointment Date 08/05/2025 [...] work (ex. student, retired, disabled, unpaid primary resident care supervisor) patient entered data In the past year, [...] phone, visiting friends or family, going to catholic or club meetings)More than 5 times a weekpatient entered dataHow stressed are you? Stress is when someone feels tense, nervous, anxious, or can't sleep at nightbecause their mind is troubledA little bitpatient entered dataIn the past year have you spent more than 2 nights in a row in a m[facility], penitentiary, senior living center, orjuvenile correctional facility?Nopatient entered dataAre you a refugee?Nopatient entered dataWhat country are you from?[place] Statespatient entered dataDo you feel physically and emotionally safe where you currently live?Yespatient entered dataIn the past year, have you been afraid of your partner or ex-partner?Nopatient entered dataPRAPARE Score:4 Problems Problem Type SNOMED Code ICD Code Onset Dates Problem Status W/U Status Risk Notes Problem Restless legs (90145026) Restless legs (G 25.81) ActiveconfirmedProblemArthritis (7612872)Arthritis (M19.90)Activeconfirmed ProblemObese class I (finding) (101079825843515)Obesity, Class I, BMI 30-34.9 (E66.811)Activeconfirmed Vital Signs [...] Location Date Provider Diagnosis Main [address] [facility] [place] [place] [id number] 08/03/2025 Kristen Jass Right hip pain M25.5 51 ; Restless [...] counseling (ICD-10 - Z71.82) Plan Of Treatment No Information Insurance Providers Payer Name Payer Address Payer Phone Subscriber Number Group Number Insured Name Patient Relationship to Insured Coverage Start Date Coverage End Date Medicare NGS PPS [address] [place], [place] [id number] [phone] [id number] Alexandria Boyd - patient is the [id number] 2011[facility] MCR Supplement [address] [address] [place] [id number] Alexandria Blackburn - patient is the [id number] 2023 Medical (General) History Medical History History ICD Code Osteoporosis Hip arthritisHLD
--- OUTSIDE RECORDS SUMMARY | 2025-09-10 13:37 | XMS_ITS | Clinical Summary ---
Author Organization [facility] Healthcare Address [address] [place] [address] Care Team Providers Care Shift Leader Name Role Phone Walter Sellers MD Primary Care Provider Allergies Active AllergyReactionsCriticalityNoted DateCommentsPenicillinsHives,OtherLow 12/01/2014 Medications MedicationSigDispense [...] lie down for the next 30 min.Active Active Problems No known active problems Encounters DateTypeDepartmentCare FzrlFfpikagbzsi48/02/2025Telephone [facility] [address] [place] [address] Viktor Carpenter PA Referral sent to [facility] was suppose to be sent to08/05/2025 1:30 PM EDTOffice Visit [facility] [address] [place] [address] Viktor Carpenter PA Acute right hip pain (Primary Dx); Sacroiliac joint pain08/05/2025amboo flowsheet [facility] [address] [place] [address] Viktor Carpenter PA 08/05/2025Travelfrom Last 3 Months Immunizations ImmunizationAdministration DatesNext DueInfluenza, High-dose Seasonal, Quadrivalent, Preservative Free08/02/2023Influenza, Seasonal, Quadrivalent, Srwwvbsjgq24/01/2021Influenza, injectable, quadrivalent, preservative free 08/12/2018Influenza, trivalent, lclxhfvyjf74/19/2018RSV, recombinant, protein subunit RSVpreF, adjuvant reconstitu, 120mcg/0.5mL, PF (Arexvy)08/02/2023Tdap 06/20/2015 Family History RelationNameStatusCommentsFatherDeceasedMotherDeceased Social History Tobacco UseTypesPacks/DayYears UsedDateSmoking Tobacco: Never Tobacco Cessation:Counseling Given: Not Answered Alcohol UseStandard Drinks/WeekCommentsYes1 (1 standard drink = 0.6 oz pure alcohol)1x weeklyCommentsUnknownSex and Gender InformationValueDate RecordedSex Assigned at BirthNot on fileLegal AfuTxshsa62/15/2023 6:56 PM EDT Gender IdentityNot on fileSexual OrientationNot on file Last Filed Vital Signs Vital SignReadingTime TakenCommentsBlood Xntropld805/7105 12:00 PM EDT Pulse--Temperature--Respiratory Rate--Oxygen Saturation--Inhaled Oxygen Concentration--Yazvkc49.6 kg (138 lb)08/05/2025 1:10 PM PLCKnoacs966 cm (5' 3 ) 08/05/2025 1:10 PM EDTBody Mass Index24.451 1:10 PM EDT Plan of Treatment DateTypeDepartmentCare Team (Latest Contact Info)Nezsgexswyz36/02/2025 1:30 PM ESTOffice Visit [facility] [address] [place] [address] Viktor Carpenter PA [address] [place] [phone] Health MaintenanceDue DateLast DoneCommentsPneumococcal Vaccine: 65+ Years (1 of 1 - PCV)1999COVID-19 Vaccine ( season)51, 08/02/2023, 02/03/2022, Additional history existsInfluenza Vaccine (#1) 5008/02/2023, 08/05/2021, 08/23/2018, Additional history existsMammogram Kaxznfjucoqr79/18/2023, 08/04/2022, 07/29/2020, Additional history exists Insurance Care Teams Team MemberRelationshipSpecialtyStart DateEnd Date Walter Sellers MD [address] [place] [address] [place] [address] PCP - [facility]06/25/24
--- NOTE | 2025-09-10 13:55 | PM.CN ---
Consult Note: HPI Data of Consult Patient: known to practice within the last 3 years Consult date: 08/26/25 Requesting Physician: Suzette Moreno NP Primary Care Provider: Non-Staff Physician, MD Consult Narrative Reason for consult: low back and RLE pain Narrative: Cinda Plummer a pleasant 75 year old female presents for evaluation of right hip pain as recommended by Viktor Carpenter, pt has a longstanding hx of low back pain resulting in scs implant around 5 years ago. Pt has had chronic low back pain >12 months worsening over the last 6 weeks. no recent injury or fall. Patient has failed to benefit from daily stretching >20 minutes over the last 6 weeks. Pain today 4/10 increasing with activity to 8/10 with standing, walking, PM, riding in a car, driving, and activity. recently underwent right SIJ injection with >50% improvement in right SIJ pain. notes worsening right LE pain and radiculopathy. cc:: CC: Suzette Moreno NP PFS PFS Medical History (Updated 09/10/25 @ 13:57 by Suzette Moreno NP) Ovarian tumor ?D49.59 - Neoplasm of unspecified behavior of other genitourinary organ (ICD-10) Abdominal hernia ?K46.9 - Unspecified abdominal hernia without obstruction or gangrene (ICD-10) Surgical History (Updated 08/26/25 @ 10:14 by Juani Lafleur) History of plastic surgery ?Z98.890 - Other specified postprocedural states (ICD-10) History of cholecystectomy ?Z90.49 - Acquired absence of other specified parts of digestive tract (ICD-10) History of resection of small bowel ?Z90.49 - Acquired absence of other specified parts of digestive tract (ICD-10) Hx of breast reduction, elective ?Z98.890 - Other specified postprocedural states (ICD-10) History of hysterotomy ?Z98.891 - History of uterine scar from previous surgery (ICD-10) Meds Home Medications and Allergies Home Medications ?Medication ?Instructions ?Recorded ?Confirmed ?Type alendronate 70 mg tablet 70 mg PO QWEEK 08/26/25 08/31/25 History atorvastatin 20 mg tablet 20 mg PO DAILY 08/26/25 08/31/25 History diclofenac sodium 50 mg 50 mg PO BID 08/26/25 08/31/25 History tablet,delayed release gabapentin 300 mg capsule 300 mg PO BID 08/26/25 08/31/25 History pantoprazole 40 mg tablet,delayed 40 mg PO DAILY 08/26/25 08/31/25 History release Allergies Allergy/AdvReac Type Severity Reaction Status Date / Time No Known Drug Allergies Allergy Verified 08/31/25 10:38 Exam Constitutional Documenting provider has reviewed patient's vital signs: yes Common normals: no apparent distress, oriented x3 and alert General appearance: cooperative HENMT Common normals: normocephalic, hearing grossly normal bilaterally and moist oral mucous membranes Head and scalp: normocephalic Eye Common normals: PERRL Pupil: PERRL Neck & C-Spine Common normals: full ROM General: normal visual inspection Chest Common normals: inspection of chest normal Respiratory Common normals: normal respiratory effort, no retractions and no use of accessory muscles Back & Pelvis Lumbar spine/lower back: ROM limited, pain with ROM, lumbar spinal tenderness and straight leg raise positive right Sacroiliac joints: SI joint(s) abnormal Other: right sij positive shaji(patricks), gaenslens, thigh thrust, compression test radiculopathy noted to right L4,5,S1 strength 4/5 in RLE and 5/5 in LLE Neuro Common normals: oriented x3 Sensorium/orientation: alert Psych Common normals: mental status grossly normal, thought process normal, cooperative, affect normal, speech normal and activity/motor behavior normal Speech: normal speech Thought process: normal thought process Results Additional Findings Additional findings: If on a controlled substance or opioids, I have checked an [place]AR[place] report on this patient and there are no aberrancies noted in the prescribing history.??If on a controlled substance or opioid a drug screen was completed and reviewed within the last year, and if there has not been a drug screen completed we ordered one today to monitor higher risk, state monitored pain medication use. As part of providing excellent, safe, comprehensive care, the following was completed at our patient's visit: 1. A medication reconciliation and review to ensure accurate knowledge of current/active medications, including asking our patients to inform us about any fvjv-dca-qazlbht medications or herbal remedies/nutritional supplements/alternative remedies. 2. A review to specifically ensure our patients have had annual screening for screening for depression, screening for tobacco use, and screening for unhealthy alcohol use. For concerning screenings had a discussion with the patient, provided patient education, and recommended follow-up with primary care provider when appropriate. If patient noted with a risk of falling, they received education on strength, gait, and balance training to prevent future risk of falling. Portions of this note may have been carried over from the previous visit and updated as appropriate. Please note this office utilizes paper charting in addition to the electronic medical record. A list of current medications, vitals, and PMH is available there as the clinical staff outside of myself do not have access to [employer] charting during the clinic day operations. As part of providing quality comprehensive care the current medications, vitals, and PMH were reviewed in the paper chart. Assessment and Plan Assessment and Plan (1) Degenerative disc disease (DDD) of lumbar region with discogenic back pain and leg pain: (2) Lumbar radiculopathy: (3) Sacroiliitis: Plan The patient has had over 3 months of moderate to severe low back, right SIJ, and right leg pain with functional impairment and inadequate response to conservative care including NSAIDS (unless there are contraindication such as concurrent blood thinners), multiple oral or topical pain medications, and home exercise program/physical therapy.? Patient has completed >6 weeks of guided home exercise program and/or formal physical therapy program without relief of their symptoms.? I have reviewed the imaging of the lumbar spine and no red flags were identified.? The imaging reveals radiographic findings consistent with {aimage:[id number]}? The Oswestry Disability Index was completed, and the patient scored a 22%.? lumbar xray reviewed with patient. update lumbar MRI without contrast to assess lumbar radiculopathy and lumbar ddd with back and LE pain in consideration of lumbar TFESI vs surgical intervention increase diclofenac 75mg bid prn pain, take with food. stop all otc nsaids pt advised to call perlita to discuss scs programming f/u to review lumbar MRI
== END 2025-09-10 13:34 | disposition home or self-care (01) ==
LOC: PM 13:34
PROVIDERS: Visit Provider Nurse Practitioner
DX: M51.362 Other intervertebral disc degeneration, lumbar region with discogenic back pain and lower extremity pain (principal); M54.16 Radiculopathy, lumbar region; M46.1 Sacroiliitis, not elsewhere classified
CPT/HCPCS: G0463

== ENCOUNTER 2025-10-09 12:22 | Outpatient (OUT) | payer MEDICARE, OTHER, SELFPAY ==
--- NOTE | 2025-10-09 12:26 | CT_ITS ---
The [address] [address] Patient Name: JEANA BOYD MRN: [id number] date: 1950 Sex: F Assigned Patient Location: CT Current Patient Location: CT Accession/Order Number: [id number] Exam Date: 10/09/2025 12:30 Report Date: 10/09/2025 22:23 At the request of: VERONICA BOURGEOIS NP Procedure: CT lumbar spine wo con CT lumbar spine wo con 10/09/2025 12:41 PM History:Lumbar radiculopathy, back pain, lumbar degenerative disc disease. TECHNIQUE: Multi detector CT axial slices of the lumbar spine were obtained without IV contrast. Volumetric acquisition sagittal, coronal, and 3-D reconstructions were performed and reviewed on a separate workstation. CT was performed with one or more of the following dose reduction techniques: Automated exposure control, adjustment of the mA and/or kV according to patient size, or use of iterative reconstruction technique. COMPARISON: X-rays lumbar spine 08/26/2025 FINDINGS: Lumbar vertebral heights are maintained. Nnzp-gd-iusmraya disc space narrowing L3-S1. Vacuum disc phenomenon identified at L5-S1. Anterolisthesis of L3 on L4 and L4-L5 identified measuring 5 mm and 2 mm respectively. Left posterior flank spinal stimulator device identified. These extend into the wording of the thoracic spine, typically not visualized. T12-L1: Unremarkable. L1-2: Central protrusion. Facet arthropathy. Mild canal mild neural from narrowing. L2-3: Broad-based disc bulge with facet arthropathy. Mild canal and qbgs-sx-rergdtwt neural from narrowing. L3-4: Anterolisthesis with uncovering the posterior disc and broad-based disc bulge. Facet arthropathy. There is moderate severe central canal and right greater than left subarticular recess narrowing. There is moderate right greater than left sided neural foraminal narrowing. Facet arthropathy. L4-5: Circumferential disc bulge with facet arthropathy with moderate canal narrowing. There is moderate severe right-sided and moderate left-sided neural foraminal narrowing. L5-S1: Circumferential disc bulge with facet arthropathy. There is suspected superimposed left foraminal zone disc which contacts the exiting left L5 nerve root. Otherwise bilateral foraminal narrowing moderate right moderate severe left and kdtd-cj-ovihsjjc canal stenosis. Left-sided parapelvic cysts. Suspected left renal calculi nonobstructive. Postsurgical changes involving the region of the sigmoid colon noted. CT/CT lumbar spine wo con IMPRESSION: No acute bony abnormality or malalignment. Multilevel degenerative changes greatest left at L5-S1, correlate with possible left L5 radiculopathy. Moderate severe canal stenosis L3-4. Additional findings and details as above. Impression dictated by: David Will M.D. 10/09/2025 10:23 PM Dictation Location: [place] [address] Electronically authenticated by: [id number] Y Date: 10/09/2025 22:23
--- OUTSIDE RECORDS SUMMARY | 2025-10-09 12:28 | XMS_ITS | Clinical Summary ---
Author Organization [facility] Healthcare Address [address] [place] [address] Care Team Providers Care Global Product Manager Name Role Phone Walter Sellers MD Primary Care Provider [phone] Allergies Active AllergyReactionsCriticalityNoted DateCommentsPenicillinsHives,OtherLow 12/01/2014 Medications MedicationSigDispense [...] Problems No known active problems Encounters DateTypeDepartmentCare YcfoShpesaksgqo34/02/2025Telephone [facility] Orthopaedic [address] [place] [address] Viktor Carpenter PA Referral sent to [facility] was suppose to be sent to08/05/2025 1:30 PM EDTOffice Visit [facility] Orthopaedics [address] [place] [address] Viktor Carpenter PA Acute right hip pain (Primary Dx); Sacroiliac joint pain08/05/2025amboo flowsheet [facility] [address] [place] [address] Viktor Carpenter PA 08/05/2025Travelfrom Last 3 Months Immunizations ImmunizationAdministration DatesNext DueInfluenza, High-dose Seasonal, Quadrivalent, Preservative Free08/02/2023Influenza, Seasonal, Quadrivalent, Cycjcohlcc35/01/2021Influenza, injectable, quadrivalent, preservative free 08/12/2018Influenza, trivalent, cidgsgsgfp29/19/2018RSV, recombinant, protein subunit RSVpreF, adjuvant reconstitu, 120mcg/0.5mL, PF (Arexvy)08/02/2023Tdap 06/20/2015 Family History RelationNameStatusCommentsFatherDeceasedMotherDeceased Social History Tobacco UseTypesPacks/DayYears UsedDateSmoking Tobacco: Never Tobacco Cessation:Counseling Given: Not Answered Alcohol UseStandard Drinks/WeekCommentsYes1 (1 standard drink = 0.6 oz pure alcohol)1x weeklyCommentsUnknownSex and Gender InformationValueDate RecordedSex Assigned at BirthNot on fileLegal NtjWkencc41/15/2023 6:56 PM EDT Gender IdentityNot on fileSexual OrientationNot on file Last Filed Vital Signs Vital SignReadingTime TakenCommentsBlood Kayidwlq717/7105 12:00 PM EDT Pulse--Temperature--Respiratory Rate--Oxygen Saturation--Inhaled Oxygen Concentration--Enymwv86.6 kg (138 lb)08/05/2025 1:10 PM CMQBkngto664 cm (5' 3 ) 08/05/2025 1:10 PM EDTBody Mass Index24.451 1:10 PM EDT Plan of Treatment Health MaintenanceDue DateLast DoneCommentsPneumococcal Vaccine: 65+ Years (1 of 1 - PCV)1999COVID-19 Vaccine (2024- season), 08/02/2023, 02/03/2022, Additional history existsInfluenza Vaccine (#1) 509/, 08/05/2021, 08/23/2018, Additional history existsMammogram Vylgvzpxqghe60/18/2023, 08/04/2022, 07/29/2020, Additional history exists Insurance Care Teams Team MemberRelationshipSpecialtyStart DateEnd Date Walter Sellers MD [facility] [place] [address] [facility]06/25/24
--- OUTSIDE RECORDS SUMMARY | 2025-10-09 12:29 | XMS_ITS | Encounter Summary ---
Author Organization [facility] tem Address [id number] [address] [place] [address] Care Team Providers Care Wood Pattern Maker Name Role Phone AmayaTanya jhaPromise APRN-PAINTER HELPER SIGN Primary Care Provider Reason for Visit * ReasonOnset DateCommentsMed Yvickg5809/30/2025 Encounter Details DateTypeDepartmentCare Team (Latest Contact Info)Snsyhhqkvhw98/26/2025Refill [facility] [address] [place] [phone] Aixa Cesar CMA Social History Tobacco UseTypesPacks/DayYears UsedDateSmoking Tobacco: NeverSmokeless Tobacco: NeverAlcohol UseStandard Drinks/WeekCommentsYes0 (1 standard drink = 0.6 oz pure alcohol)1 beers a month summ[facility]ime[facility] UtilitiesAnswerDate RecordedIn the past 12 months has the [employer], gas, oil, or water [employer] threatened to shut off services in your home?No4AUDIT-CAnswerDate RecordedQ1: How often do you have a drink containing alcohol?2-4 times a month09/20/2024Q2: How many drinks containing alcohol do you have on a typical day when you are drinking?1 or 2 09/20/2024Q3: How often do you have six or more drinks on one occasion?Never 09/20/2024HQ-2AnswerDate RecordedTotal Gomzw118PRAPARE - Transportation AnswerDate RecordedIn the past 12 [...] as a part of a household?No 4ChildcareAnswerDate McbuactdFrdhzwwvrWhunvcd10/03/2019EmploymentAnswer Date DvvqrexfTjecrmznvvVkedmjb08/03/2019Hunger ScreeningAnswerDate Recorded Within the past 12 months we worried whether our food would run out before we got money to buy more.Never True04/22/2025Within the past 12 months the food we bought just didn't last and we didn't have money to get more.Never True 04/22/2025Purpose - LifeAnswerDate RecordedPurpose and direction in lifeUnknown 1CommentsNoSex and Gender InformationValueDate RecordedSex Assigned at BirthNot on fileLegal TfwEakuvn32/06/2015 11:30 AM EDTGender IdentityNot on fileSexual OrientationNot on filedocumented as of this encounter Plan of Treatment DateTypeDepartmentCare Team (Latest Contact Info)Mebypsaqgua02/11/2026 1:20 PM EDTOffice Visit [facility] [address] [place] [phone] Promise Amaya APRN-CNP [address] [place] [phone] 02/03/2026 2:30 PM EDTOffice Visit [facility] Department of [facility] [address] [place] [address] Sesar Montoya MD [address] [facility] [address] [place] [address] documented as of this encounter Goals GoalPatient Goal TypeAssociated ProblemsRecent ProgressPatient-Stated?Author Safe transition to home with C and family support Juani Deng RN Note: Evaluation of progress towards goal: Safe transition to home with [facility] and family support. documented as of this encounter Visit Diagnoses Not on filedocumented in this encounter Additional Health Concerns AssessmentNoted TimePHQ-9 Depression Total Score: 12:50 PM EDT documented as of this encounter Care Teams Team MemberRelationshipSpecialtyStart DateEnd Date Promise Amaya APRN-AVNI [address] [place] [phone] PCP - GeneralNurse Practitioner11/12/24documented as of this encounter
--- OUTSIDE RECORDS SUMMARY | 2025-10-09 12:29 | XMS_ITS | Clinical Summary ---
Author Organization [facility] Address [address] [place], [place] [id number] Care Team Providers Care Measurement Coordinator Name Role Phone Marlo Serrato DO, Charles Lewis Primary Care Provi ros Viktor Gonzalez(Hist) PA Unavailable +- [phone] Allergies Active AllergyReactionsCriticalityNoted UehhBqwjqufjCmvixxfobdWcizr58/17/2018 Medications MedicationSigDispense QuantityRefillsLast FilledStart DateEnd DateStatus multivitamin [...] number is lower riskNot on file10/12/2020Data from: https://www.neighborhoodatlas.medicine.[facility].edu/. Last address used for calculationNot on file10/12/2020CommentsUnknownSex and Gender InformationValueDate RecordedSex Assigned at BirthNot on fileLegal SexFemale 10/10/2018 8:34 AM ESTGender IdentityNot on fileSexual OrientationNot on file Last Filed Vital Signs Vital SignReadingTime TakenCommentsBlood Yghdjkuo956/6310/21/2018 10:59 AM EST Pulse--Temperature--Respiratory Rate--Oxygen Saturation--Inhaled Oxygen Concentration--Svkdxz82.6 kg (135 lb 11.2 oz)10/21/2018 10:59 AM LWSGkkmtj826.6 cm (5' 4 )10/21/2018 10:59 AM ESTBody Mass Index23.29112/22/2017 10:59 AM EST Plan of Treatment Health MaintenanceDue DateLast DoneCommentsAnxiety Dcdfokkec86/26/1967Depression Lrtclvlad40/26/1967Hepatitis C Nbbyebwqx41/26/1967Diabetes Gmvcvaszg61/26/1994 Pneumococcal Vaccine: 50+ (1 of 1 - PCV)1999Shingrix Vaccine (1 of 2) 1999Bone Density Ashqlogih44/26/2014RSV Vaccine (1 - 1-dose 75+ series) 2024dvance Directive Ueeapbjtcf83/01/2025DTaP,Tdap,Td Vaccine (2 - Td or Tdap)/Covid-19 Vaccine (1 - season)2025 Influenza Vaccine (#1)/, 08/12/2018 Insurance Care Teams Team MemberRelationshipSpecialtyStart DateEnd Date Walter Sellers Jr., DO [address] [place] [address] PCP - GeneralInternal Qivivghq17/6/18 Viktor Gonzalez(Hist), PA [address] [place] [address] ReferringPain Asmpaszccb22/6/18
--- OUTSIDE RECORDS SUMMARY | 2025-10-09 12:29 | XMS_ITS | Clinical Summary ---
Author Organization [facility] Address [address] [facility], [address] [place] [address] Care Team Providers Care Equipment Installation Professional Name Role Phone Walter Sellers Primary Care Provider + [phone] Allergies Active AllergyReactionsCriticalityNoted FvxoUmqzgjvvCuvexlwdcao56/27/2015 Medications MedicationSigDispense QuantityRefillsLast FilledStart DateEnd DateStatus ibuprofen (ADVIL;MOTRIN) 800 MG tablet Take 800 mg by mouth every 6 hours as needed for Pain.Active calcium carbonate (OSCAL) 500 MG TABS tablet Take 1,200 mg by mouth daily.Active Sterling-3 Fatty Acids (FISH OIL) 600 MG CAPS Take by mouth.Active Multiple Vitamins-Minerals (THERAPEUTIC MULTIVITAMIN-MINERALS) tablet Take 1 tablet by mouth daily.Active vitamin C (ASCORBIC ACID) 500 MG tablet Take 500 mg by mouth dailyActive Active Problems ProblemNoted DateDiagnosed DateOther plastic surgery for unacceptable cosmetic oyveauplmc96/25/2015 Social History Tobacco UseTypesPacks/DayYears UsedDateSmoking Tobacco: NeverSmokeless Tobacco: NeverAlcohol UseStandard Drinks/WeekCommentsNo0 (1 standard drink = 0.6 oz pure alcohol)CommentsNoSex and Gender InformationValueDate RecordedSex Assigned at BirthNot on fileLegal WfmZcdook33/10/2013 1:34 PM ESTGender Identity Not on fileSexual OrientationNot on file Last Filed Vital Signs Vital SignReadingTime TakenCommentsBlood Opxqmvhv609/7409/22/2020 1:12 PM EST Hqqek016209/22/2020 1:12 PM PUXFrxkuuosctr32.7 ??C (98 ??F)09/22/2020 1:12 PM EST Respiratory Adxr994112/24/2014 1:00 PM ESTOxygen Oextihyzdf51%12/24/2014 1:00 PM ESTInhaled Oxygen Concentration--Mxuskj55 kg (130 lb)09/22/2020 1:12 PM EST Dlqmrs504 cm (5' 3 )09/22/2020 1:12 PM ESTBody Mass Index23.03111/22/2019 1:12 PM EST Plan of Treatment Not on file Insurance Advance Directives TypeDate RecordedPatient RepresentativeExplanationACP-Power of Attorney12/29/2014 10:59 AMACP-Advance Directive12/29/2014 10:59 AM Care Teams Team MemberRelationshipSpecialtyStart DateEnd Date Walter Sellers DO [address] [place] [phone] PCP - GeneralInternal Medicine12/01/14
--- OUTSIDE RECORDS SUMMARY | 2025-10-09 12:29 | XMS_ITS | Clinical Summary ---
Author Organization [employer] tem Address [id number] [address] [place] [address] Care Team Providers Care Roving Changer Name Role Phone AmayaTanya álvarezjose [facility] Primary Care Provider Allergies Active AllergyReactionsCriticalityNoted DateCommentsPenicillinsHivesLow [...] remain upright for 30min 12 tablet 5Active pantoprazole (PROTONIX) 40 mg EC tablet Take 1 tablet (40 mg total) by mouth in the morning. 90 tablet 5Active diclofenac (VOLTAREN) 75 mg EC tablet Take 1 tablet (75 mg total) by mouth in the morning and 1 tablet (75 mg total) before bedtime.5Active atorvastatin (LIPITOR) 20 mg tablet Take 1 tablet (20 mg total) by mouth in the morning. 90 tablet 5Active atorvastatin (LIPITOR) 20 mg tablet Take 1 tablet (20 mg total) by mouth in the morning. 90 tablet Discontinued(Reorder) ibuprofen (MOTRIN) 800 mg tablet Indications:Lumbosacral spondylosis without myelopathyTake 1 tablet (800 mg total) by mouth every 6 (six) hours as needed for pain. 270 tablet Discontinued(Alternate therapy) Active Problems ProblemNoted DateDiagnosed DateRight upper quadrant [...] enzymes and CBC were ordered Nausea and yrfjifrb06/26/2025 Assessment & Plan (01/28/2025 2:11 PM EDT): [...] and urine culture in Fracture arms with rib/sternum-ropket9509/19/2024SBO (small bowel obstruction) 03/20/2023Lumbosacral spondylosis without honymmvbjn94/10/2018 Overview (02/12/2018): Added automatically from request for surgery [id number] Disc displacement, qyxrnn4306/21/2017Disorder of ldesno5005/28/2017 Encounters DateTypeDepartmentCare TyinOztbgfkicjn73/26/2025Refill [facility] [address] [place] [phone] Aixa Cesar CMA 09/17/2025Telephone [facility], [facility] [address] [facility] [address] [place] [address] Alicia Campbell 09/15/2025Orders Only [facility] [address] [place] [phone] Tito Orellana DO 07/30/2025Refill [facility] [address] [place] [phone] Tito Orellana, DO Lumbosacral spondylosis without myelopathyfrom Last 3 Months Immunizations ImmunizationAdministration DatesNext DueInfluenza Vaccine, Quadrivalent, Bwdwzcvolq59/01/2021Influenza, High-dose, Dhllbysszdpj31/28/2023Influenza, Injectable, quadrivalent (PF)08/12/2018Influenza, Trivalent, Adjuvanted 08/23/2018RSV, recombinant, protein subunit RSVpreF, adjuvant reconstituted, 0.5 mL, PF08/02/2023Tdap06/20/2015 Family History Medical HistoryRelationNameCommentsColon cancerBrother 1Esophageal cancerBrother 2DiabetesFatherCOPDMotherBreast cancerNeg HxRelationNameStatusCommentsBrother 1 DeceasedBrother 2DeceasedFatherDeceasedMotherDeceased Social History Tobacco UseTypesPacks/DayYears UsedDateSmoking Tobacco: NeverSmokeless Tobacco: Never Tobacco Cessation:Counseling Given: Not Answered Alcohol UseStandard Drinks/WeekCommentsYes0 (1 standard drink = 0.6 oz pure alcohol)1 beers a month summertimeOH[facility] UtilitiesAnswerDate RecordedIn the past 12 months has the [employer], gas, oil, or water [employer] threatened to shut off services in your home?No4AUDIT-CAnswerDate RecordedQ1: How often do you have a drink containing alcohol?2-4 times a month09/20/2024Q2: How many drinks containing alcohol do you have on a typical day when you are drinking?1 or 2 09/20/2024Q3: How often do you have six or more drinks on one occasion?Never 4PHQ-2AnswerDate RecordedTotal Jjfta920PRAPARE - Transportation AnswerDate RecordedIn the past 12 [...] as a part of a household?No 4ChildcareAnswerDate PfgeslfiQuhtfmizgEkfwukw07/03/2019EmploymentAnswer Date FaplsnovQyxtxirfdzGdsaees34/03/2019Hunger ScreeningAnswerDate Recorded Within the past 12 months we worried whether our food would run out before we got money to buy more.Never True04/22/2025Within the past 12 months the food we bought just didn't last and we didn't have money to get more.Never True 04/22/2025Purpose - LifeAnswerDate RecordedPurpose and direction in lifeUnknown 1CommentsNoSex and Gender InformationValueDate RecordedSex Assigned at BirthNot on fileLegal JdrGlwljw22/06/2015 11:30 AM EDTGender IdentityNot on fileSexual OrientationNot on file Last Filed Vital Signs Vital SignReadingTime TakenCommentsBlood Aqjnixki944/78004/22/2025 12:50 PM EDT Lxbjf531204/22/2025 12:50 PM YEIAvduuyupura90.3 ??C (97.3 ??F)04/22/2025 12:50 PM EDTRespiratory Htzm594601/01/2025 2:07 PM ESTOxygen Tosyoflbdc05%04/22/2025 12:50 PM EDTInhaled Oxygen Concentration--Dzhsqp39.9 kg (136 lb 6.4 oz)04/22/2025 12:50 PM SLKLlxilz052 cm (5' 2.99 )04/22/2025 12:50 PM EDTBody Mass Index24.17 04/22/2025 12:50 PM EDT Plan of Treatment DateTypeDepartmentCare Team (Latest Contact Info)Ipinmkokcdj24/11/2026 1:20 PM EDTOffice Visit [facility] [address] [place] [phone] Promise Amaya, TWIST MAKER-CATH LAB [address] [place] [phone] 02/03/2026 2:30 PM EDTOffice Visit [facility], A Department of [facility] [address] [facility] [address] [place] [phone] Sesar Montoya MD [address] [facility] [address] [place], [place] [phone] Health MaintenanceDue DateLast DoneCommentsZoster (Shingles) Vaccine (1 of 2) 1999DTaP,Tdap and Td Vaccines (2 - Td or Tdap)/COVID-19 Vaccine ( season), 08/02/2023, 07/13/2022, Additional history existsInfluenza Qlyrcox94/, 08/05/2021, 08/23/2018, Additional history existsMedicare Annual Wellness Visit01/12/2026 01/12/2025Fall Risk Vihkwzmmu91/Depression Wmbzkaclq99/18/2026 04/22/2025Tobacco Jwcettdag44/RSV ( or age 60+ yrs) Lxhwdoays71/28/2023 Goals GoalPatient Goal TypeAssociated ProblemsRecent ProgressPatient-Stated?Author Safe transition to home with [facility] and family support Juani Deng RN Note: Evaluation of progress towards goal: Safe transition to home with [facility] and family support. Medical Devices ImplantedTypeAreaManufacturerDevice IdentifierShelf Expiration DateModel / Serial / LotLens Iol Ultrasert 23.0d - [id number] - [id number] Implanted:Qty: 1 on 10/12/20[facility] [id number] 23.0 / [id number] / NALens Iol Ultrasert 21.5d - [id number] - [id number] Implanted:Qty: 1 on 12/05/2022 by Merry Xiong MD at [facility]: [id number] 21.5 / [id number] / Insurance on file Advance Directives * Full Code (Latest Code Status on File) Date ActivatedDate RgalftakdsvMqqibuyf55/15/2024 6:48 PM09/21/2024 4:41 PM * Full Code Date ActivatedDate InactivatedComments03/20/2023 7:38 AM03/23/2023 4:31 PM Care Teams Team MemberRelationshipSpecialtyStart DateEnd Date Promise Amaya APRN-AVNI [address] [place] [phone] PCP - GeneralNurse Practitioner11/12/24
== END 2025-10-09 12:23 | disposition home or self-care (01) ==
LOC: CT 12:22
PROVIDERS: PCP Internal Medicine; Visit Provider Nurse Practitioner
DX: M54.16 Radiculopathy, lumbar region (principal); M51.362 Other intervertebral disc degeneration, lumbar region with discogenic back pain and lower extremity pain; M48.062 Spinal stenosis, lumbar region with neurogenic claudication
CPT/HCPCS: 72131; 76376

== ENCOUNTER 2025-10-15 08:06 | Outpatient (OUT) | payer MEDICARE, OTHER, SELFPAY ==
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
== END 2025-10-15 08:07 | disposition home or self-care (01) ==
LOC: PM 08:07
PROVIDERS: PCP Internal Medicine; Visit Provider Nurse Practitioner
DX: T85.192A Other mechanical complication of implanted electronic neurostimulator of spinal cord electrode (lead), initial encounter (principal); M51.362 Other intervertebral disc degeneration, lumbar region with discogenic back pain and lower extremity pain; Z45.49 Encounter for adjustment and management of other implanted nervous system device; M54.16 Radiculopathy, lumbar region; M46.1 Sacroiliitis, not elsewhere classified
CPT/HCPCS: G0463